=== PATIENT | female | born 1955 | race Caucasian/White ===

== ENCOUNTER 2024-02-17 12:42 | Outpatient (OUT) | payer MEDICARE, OTHER, SELFPAY ==
--- NOTE | 2024-02-17 12:52 | MM_ITS ---
Patient Name: YUKI VILLALOBOS MR#: [id number] : 1955 Exam Date: 02/17/2024 Ordering Doctor: DR EUNICE CRAIG . RADIOLOGY REPORT PROCEDURE: MM TOMOSYNTHESIS SCREENING BI COMPARISON: MG MAMM SCREEN 3D ARIADNE CAD, 02/14/2023. MG MAMM SCREEN 3D ARIADNE CAD, 02/05/2022. MG MAMM SCREEN 3D ARIADNE CAD, 02/02/2021. MG MAMM ARIADNE SCRN W CAD DIG, 06/03/2012. INDICATIONS: Screening Calculator Name NCI Breast Cancer Risk Assessment Tool 5 Year Breast Cancer Risk 1.40% Lifetime Breast Cancer Risk 4.90% Personal Breast Cancer No Personal Ovarian Cancer No Treatments None Family Cancers Son with testicular cancer at age 27. LOCATION: [facility] BREAST COMPOSITION: The breasts are almost entirely fatty. FINDINGS: DIAGNOSTIC CATEGORY 1--NEGATIVE. RIGHT BREAST: No significant suspicious finding. No significant change has occurred. LEFT BREAST: No significant suspicious finding. No significant change has occurred. RECOMMENDATIONS: ROUTINE MAMMOGRAM AND CLINICAL EVALUATION IN 12 MONTHS. PLEASE NOTE: A NORMAL MAMMOGRAM DOES NOT EXCLUDE THE POSSIBILITY OF BREAST CANCER. A CLINICALLY SUSPICIOUS PALPABLE LUMP SHOULD BE BIOPSIED. Dictated by: Geraldo Alvarenga M.D. on 02/18/2024 at 14:33 Approved by: Geraldo Alvarenga M.D. on 02/18/2024 at 14:35
== END 2024-02-17 12:43 | disposition home or self-care (01) ==
LOC: MAMMO 12:46
PROVIDERS: PCP Family Medicine; Visit Provider Family Medicine
DX: Z12.31 Encounter for screening mammogram for malignant neoplasm of breast (principal); Z80.43 Family history of malignant neoplasm of testis
CPT/HCPCS: 77063; 77067

== ENCOUNTER 2024-08-13 07:37 | Outpatient (OUT) | payer MEDICARE, OTHER, SELFPAY ==
--- OUTSIDE RECORDS SUMMARY | 2024-08-13 07:40 | XMS_ITS | CCD ---
Author Organization [facility] Care Team Providers Care Vp Lab Name Role Phone RAFA, DR DAWSON Attending Ned CRAIG, DR DAWSON Consulting Unavailable RAFA, DR DAWSON Primary Care Unavailable RAFA, DR DAWSON Admitting Unavailable ZIEBER, DR GERALDO Giraldo Consulting CHARISSA Brock Referring EUNICE Hoff Primary Care Unavailable CHARISSA BARONE Referring Unavailable EUNICE CRAIG Primary Care Unavailable Eunice Craig MD Primary Care Provider Eunice Craig MD Unavailable [phone] Eunice Craig MD Primary Care Provider Eunice Craig MD Unavailable [phone] CHARISSA BARONE Attending EUNICE Hoff Attending Unavailable EUNICE CRAIG Attending CHARISSA Brock Attending Unavailable CHARISSA BARONE Referring Unavailable CHARISSA BARONE Attending Unavailable EUNICE CRAIG Attending Unavailable CHARISSA BARONE Attending Unavailable EUNICE CRAIG Attending Unavailable LV LI Attending Unavailable EUNICE CRAIG Referring Unavailable CHARISSA BARONE Attending Unavailable CHARISSA BARONE Referring Unavailable CHARISSA BARONE Attending Unavailable Allergies Allergy Classification Reported Allergen(s) Allergy Type Date of Onset Reaction(s) Facility (1 source) Sulfamethoxazole / Trimethoprim Drug Allergy [facility] Repository (7 sources) Sulfamethoxazole / Trimethoprim; Translations: [SULFAMETHOXAZOLE-TR IMETHOPRIM] Drug Allergy 8 Rash [facility] Repository Medications Current Medications Medication Drug Class(es) Dates Sig (Normalized) Sig (Original) bisacodyl 5 mg delayed release oral tablet (2 sources) Stimulant Laxative Start: 07-27-2024 End: 07-27-2024 take 1 tablet by mouth once bisacodyl (Dulcolax) 5 MG EC tablet Indications: Encounter for screening for malignant neoplasm of colon Take 1 tablet (5 mg) by mouth 1 time for 1 dose Do not crush, chew, or split. Take as detailed on clinic hand out for colonoscopy prep 4 tablet 07/27/2024 07/27/2024 Active gabapentin 300 mg oral capsule (8 sources) Anti-epileptic Agent Start: 12-18-2023 End: 12-28-2024 take 1 capsule by mouth at bedtime gabapentin (Neurontin) 300 MG capsule Indications: Leg pain, bilateral Take 1 capsule (300 mg) by mouth at bedtime 90 capsule 1 07/01/2024 12/28/2024 Active polyethylene glycol 3350 76707 mg powder for oral solution (2 sources) Osmotic Laxative Start: 07-27-2024 End: 07-27-2024 take 17 g by mouth once polyethylene glycol, PEG, 3350 (Glycolax) 17 GM/SCOOP powder Indications: Colonoscopy Take 238 g by mouth 1 (one) time for 1 dose Take as detailed from clinic hand out for colonoscopy prep 238 g 07/27/2024 07/27/2024 Active ramipril 10 mg oral capsule (8 sources) Angiotensin Converting Enzyme Inhibitor Start: 01-07-2024 End: 12-28-2024 take 1 capsule by mouth once daily ramipril (Altace) 10 MG capsule Indications: Essential hypertension (CMS/HCC) Take 1 capsule (10 mg) by mouth Daily 90 capsule 1 07/01/2024 12/28/2024 Active semaglutide (Ozempic) 4 MG/3ML solution pen-injector (5 sources) inject 1 mg by subcutaneous injection every week semaglutide (Ozempic) 4 MG/3ML solution pen-injector Inject 1 mg under the skin 1 (one) time per week Active urea 400 mg/ml topical cream (6 sources) urea (Carmol) 40 % cream Apply topically 2 (two) times a day. Active valACYclovir 1000 mg oral tablet (6 sources) Herpesvirus Nucleoside Analog DNA Polymerase Inhibitor, Herpes Simplex Virus Nucleoside Analog DNA Polymerase Inhibitor, Herpes Zoster Virus Nucleoside Analog DNA Polymerase Inhibitor Start: 12-03-2023 valACYclovir (Valtrex) 1 g tablet Indications: Herpes simplex Take 2 tablets twice daily for 1 day at the onset of an outbreak as needed. 40 tablet 1 12/03/2023 Active Problems Active Problems Problem Classification Problem Date Documented Date Episodic/Chronic Anxiety disorders (6 sources) Mixed anxiety and depressive disorder; Translations: [Other specified anxiety disorders] Onset: 05-22-2023 05-22-2023 Chronic Asthma (6 sources) Uncomplicated mild persistent asthma; Translations: [Mild persistent asthma, uncomplicated] Onset: 05-22-2023 05-22-2023 Chronic Essential hypertension (8 sources) Essential hypertension; Translations: [Essential (primary) hypertension] Onset: 05-22-2023 05-22-2023 Chronic Malaise and fatigue (2 sources) Fatigue; Translations: [Chronic fatigue, unspecified] 07-01-2024 Chronic Mood disorders (6 sources) Mild depression; Translations: [Mild depressive disorder] Onset: 05-22-2023 05-22-2023 Chronic Nutritional deficiencies (6 sources) Vitamin D deficiency; Translations: [Vitamin D deficiency, unspecified] Onset: 05-22-2023 05-22-2023 Chronic Osteoarthritis (7 sources) Unilateral primary osteoarthritis, right knee; Translations: [Osteoarthritis of left hip joint] Onset: 05-22-2023 05-22-2023 Chronic Other acquired deformities (6 sources) Scoliosis deformity of spine; Translations: [Scoliosis, unspecified] Onset: 05-22-2023 05-22-2023 Chronic Other connective tissue disease (2 sources) Pain in bilateral legs; Translations: [Pain in right leg] 07-01-2024 Episodic Other nutritional; endocrine; and metabolic disorders (6 sources) Body mass index 30+ - obesity; Translations: [Body mass index (BMI) 39.0-39.9, adult] Onset: 05-22-2023 05-22-2023 Chronic Other nutritional; endocrine; and metabolic disorders (8 sources) Morbid obesity; Translations: [Morbid (severe) obesity due to excess calories] Onset: 05-22-2023 05-22-2023 Chronic Other screening for suspected conditions (not mental disorders or infectious disease) (6 sources) Encounter for screening mammogram for malignant neoplasm of breast; Translations: [Patient encounter status] Onset: 02-05-2022 Episodic Other upper respiratory disease (6 sources) Allergic rhinitis; Translations: [Allergic rhinitis, unspecified] Onset: 05-22-2023 05-22-2023 Chronic Residual codes; unclassified (1 source) Family history of malignant neoplasm of testis; Translations: [FAM HX MALIGNANT NEOPLASM TESTIS] Onset: 02-07-2022 Episodic Residual codes; unclassified (2 sources) FH: Thyroid disorder; Translations: [Family history of other endocrine, nutritional and metabolic diseases] 07-01-2024 Episodic Past or Other Problems Problem Classification Problem Date Documented Da te Episodic/Chronic Acquired foot deformities (6 sources) Talipes cavus; Translations: [Congenital pes cavus, unspecified foot] Onset: 05-22-2023 05-22-2023 Episodic Genitourinary symptoms and ill-defined conditions (8 sources) Microalbuminuria; Translations: [Proteinuria, unspecified] Onset: 05-22-2023 05-22-2023 Episodic Heart valve disorders (6 sources) Heart murmur; Translations: [Cardiac murmur, unspecified] Onset: 05-22-2023 05-22-2023 Episodic Other acquired deformities (6 sources) Acquired unequal leg length; Translations: [Unequal limb length (acquired), unspecified site] Onset: 05-22-2023 05-22-2023 Episodic Other aftercare (6 sources) Polypharmacy ; Translations: [Other nursing home (current) drug therapy] Onset: 05-22-2023 Resolved: 02-25-2024 02-25-2024 Episodic Other and unspecified benign neoplasm (6 sources) Tubular adenoma of colon; Translations: [Benign neoplasm of colon, unspecified] Onset: 08-12-2019 05-22-2023 Episodic Viral infection (6 sources) Herpes simplex; Translations: [Herpesviral infection, unspecified] Onset: 05-22-2023 05-22-2023 Episodic Results Test Name Value Interpretation Reference Range Facil ity MG MAMM SCREEN 3D ARIADNE CADon 02-05-2022 MG MAMM SCREEN 3D ARIADNE CAD Patient: MILLICENT MCCLENDON Exam Date: 02/05/2022 : 1955 Gender:F Ordering : DR EUNICE CRAIG . Admission #: [id number] Family : Order #: [id number] CLICK HERE TO VIEW EXAM RADIOLOGY REPORT PROCEDURE: MAMMOGRAM SCREENING 3D BILATERAL CAD COMPARISON: MG MAMM SCREEN 3D ARIADNE CAD, 02/02/2021. MG MAMM SCREEN ARIADNE W CAD, 02/02/2020. INDICATIONS: Screening mammography Calculator Name NCI Breast Cancer Risk Assessment Tool 5 Year Breast Cancer Risk 1.30% Lifetime Breast Cancer Risk 5.30% Personal Breast Cancer No Personal Ovarian Cancer No Treatments None Family Cancers Son with testicular cancer at age 27. LOCATION: [facility] BREAST COMPOSITION: Almost entirely fatty. FINDINGS: DIAGNOSTIC CATEGORY 1--NEGATIVE. RIGHT BREAST: No significant suspicious finding. No significant change has occurred. LEFT BREAST: No significant suspicious finding. No significant change has occurred. RECOMMENDATIONS: ROUTINE MAMMOGRAM AND CLINICAL EVALUATION IN 12 MONTHS. PLEASE NOTE: A NORMAL MAMMOGRAM DOES NOT EXCLUDE THE POSSIBILITY OF BREAST CANCER. A CLINICALLY SUSPICIOUS PALPABLE LUMP SHOULD BE BIOPSIED. Dictated by: Geraldo Alvarenga M.D. on 02/05/2022 at 13:36 Approved by: Geraldo Alvarenga M.D. on 02/05/2022 at 13:41 Normal [facility] XR Chest 2 Views*on 11-20-19 XR Chest 2 Views* CLINICAL HISTORY: Shortness of breath. Abnormal lung sounds. COMPARISON: None. TECHNIQUE: Chest radiographs, PA and lateral RESULT: No consolidation. No pleural effusion. No pneumothorax. Normal pulmonary vascular pattern. Normal cardiomediastinal silhouette.Mild tortuosity of the aorta. No acute osseous findings. S-shaped scoliosis. Surgical clips upper abdomen. IMPRESSION: No acute radiographic abnormality. Report reported and signed by Alpesh Ross on 11/20/2021 1310 Normal [facility] Nursery Nurse Vital Signs Date Time Vital Sign Value Performing Clinician Rufino morjeon 07-27-2024 09:58-0400 Body height 157.5 cm [facility] [employer] [employer] 07-27-2024 09:58-0400 Body mass index (BMI) [Ratio] 37.64 kg/m2 [employer] [employer] Phone: [employer] 07-27-2024 09:58-0400 Body weight 93.35 kg [facility] Phone: [facility] [employer] 07-27-2024 09:58-0400 Diastolic blood pressure 88 mm[Hg] [employer] [employer] Phone: [employer] 07-27-2024 09:58-0400 Systolic blood pressure 140 mm[Hg] Lv Li DO Work Phone: [facility] 07-01-2024 10:03-0400 Body height 157.5 cm Eunice Craig MD Work Phone: [facility] 07-01-2024 10:03-0400 Body mass index (BMI) [Ratio] 36.21 kg/m2 Eunice Craig MD Work Phone: [facility] 07-01-2024 10:03-0400 Body weight 89.81 kg Eunice Craig MD Work Phone: [facility] 07-01-2024 10:03-0400 Diastolic blood pressure 78 mm[Hg] Eunice Craig MD Work Phone: [facility] 07-01-2024 10:03-0400 Heart rate 91 /min Eunice Craig MD Work Phone: [facility] 07-01-2024 10:03-0400 SaO2% (BldA) [Mass fraction] 97 % Eunice Craig MD Work Phone: [facility] 07-01-2024 10:03-0400 Systolic blood pressure 130 mm[Hg] Eunice Craig MD Work Phone: [facility] Healthcare Encounters Encounter Date Encounter Type Care Provider Facility Start: 08-10-2024 End: 08-10-2024 ambulatory CHARISSA BARONE Not Available Start: 07-27-2024 End: 07-27-2024 ambulatory CHARISSA BARONE Not Available Start: 07-27-2024 End: 07-27-2024 Bamboo flowsheet Lv Li DO Work Phone: [facility] Start: 07-27-2024 End: 07-27-2024 Bamboo flowsheet Lv Li DO Work Phone: [facility] Start: 07-27-2024 End: 07-27-2024 Patient encounter procedure Lv Li DO Work Phone: [facility] Comment on above: Encounter for screen ing for malignant neoplasm of colon (Primary Dx) Start: 07-27-2024 End: 07-27-2024 ambulatory LV SHAHID Not Available Start: 07-01-2024 End: 07-01-2024 Loida Craig MD Work Phone: [facility] Start: 07-01-2024 End: 07-01-2024 Loida Craig MD Work Phone: [facility] Start: 07-01-2024 End: 07-01-2024 Office outpatient visit 25 minutes Eunice Craig MD Work Phone: [facility] Comment on above: Essential hypertensi on (CMS/HCC) (Primary Dx); Microalbuminuria; Morbid obesity due to excess calories (CMS/HCC); Chronic fatigue; Family history of thyroid disease; Leg pain, bilateral Start: 07-01-2024 End: 07-01-2024 ambulatory EUNICE CRAIG Not Available Start: 04-27-2024 End: 04-27-2024 ambulatory CHARISSA BARONE Not Available Start: 02-25-2024 End: 02-25-2024 ambulatory EUNICE CRAIG Not Available Start: 01-27-2024 End: 01-27-2024 ambulatory CHARISSA BARONE Not Available Start: 01-13-2024 End: 01-13-2024 ambulatory CHARISSA BARONE Not Available Start: 01-07-2024 End: 01-07-2024 ambulatory EUNICE CRAIG Not Available Start: 11-20-2023 End: 11-20-2023 ambulatory EUNICE CRAIG Not Available Start: 10-01-2023 End: 10-31-2023 ambulatory CHARISSA Moise BARONE [facility] Start: 08-27-2023 End: 09-30-2023 ambulatory CHARISSA BARONE [facility] Start: 08-19-2023 End: 08-19-2023 ambulatory CHARISSA BARONE Not Available Start: 02-05-2022 End: 02-06-[address] EUNICE CRAIG Facility:[facility]1 Procedures Date Procedure Procedure Detail Performing Clinician Start: 02-18-2024 Mammography Eunice barreto MD Work Phone: Start: 08-12-2019 Colonoscopy Eunice barreto MD Work Phone: Plan of Treatment Date Care Activity Detail Author Start: 08-12-2029 Screening for malign ant neoplasm of colon [facility] Start: 02-24-2025 Medicare Annual Well ness (AWV) Medicare Annual Wellness (AWV) [facility] Healthcare Start: 02-17-2025 Screening for malign ant neoplasm of breast Mammogram [facility] Start: 12-30-2024 End: 07-01-2025 T3, reverse T3, reverse Lab Routine Chronic fatigue Family history of thyroid disease Expected: 12/30/2024 (Approximate), Expires: 07/01/2025 [facility] Comment on above: Expected: 12/30/2024 (Approximate), Expires: 07/01/2025 Start: 12-30-2024 End: 07-01-2025 Thyrotropin [Units/volume] in Serum or Plasma TSH Lab Routine Chronic fatigue Family history of thyroid disease Expected: 12/30/2024 (Approximate), Expires: 07/01/2025 [facility] Comment on above: Expected: 12/30/2024 (Approximate), Expires: 07/01/2025 Start: 12-30-2024 End: 07-01-2025 Thyroxine (T4) free [Mass/volume] in Serum or Plasma T4, free Lab Routine Chronic fatigue Family history of thyroid disease Expected: 12/30/2024 (Approximate), Expires: 07/01/2025 [facility] Comment on above: Expected: 12/30/2024 (Approximate), Expires: 07/01/2025 Start: 12-30-2024 End: 07-01-2025 Triiodothyronine (T3) [Mass/volume] in Serum or Plasma T3 Lab Routine Chronic fatigue Family history of thyroid disease Expected: 12/30/2024 (Approximate), Expires: 07/01/2025 [facility] Work Phone: Comment on above: Expected: 12/30/2024 (Approximate), Expires: 07/01/2025 Start: 12-30-2024 End: 07-01-2025 Triiodothyronine (T3) Free [Mass/volume] in Serum or Plasma T3, free Lab Routine Chronic fatigue Family history of thyroid disease Expected: 12/30/2024 (Approximate), Expires: 07/01/2025 [facility] Comment on above: Expected: 12/30/2024 (Approximate), Expires: 07/01/2025 Start: 12-23-2024 End: 12-23-2024 Patient encounter procedure [facility] Start: 07-27-2024 End: 07-27-2024 Patient encounter procedure 07/27/2024 2:30 PM EDT Office Visit [facility] [address] [place] [phone] Charissa Barone, [employer]ATOR [address] [place] [place], [place] [id number] [facility] Start: 07-27-2024 End: 07-27-2024 Patient encounter procedure 07/27/2024 9:45 AM EDT Office Visit [facility] [address] [place] [address] Lv Li DO [address] [place] [address] Encounter for screening for malignant neoplasm of colon [facility] Comment on above: Encounter for screen ing for malignant neoplasm of colon Start: 07-01-2024 End: 07-01-2025 CBC W Auto Differential panel - Blood CBC and differential Lab Routine Chronic fatigue Expected: 07/01/2024 (Approximate), Expires: 07/01/2025 [facility] Comment on above: Expected: 07/01/2024 (Approximate), Expires: 07/01/2025 Start: 07-01-2024 End: 07-01-2025 Cortisol Cortisol Lab Routine Morbid obesity due to excess calories (CMS/HCC) Chronic fatigue Expected: 07/01/2024 (Approximate), Expires: 07/01/2025 [facility] Comment on above: Expected: 07/01/2024 (Approximate), Expires: 07/01/2025 Start: 07-01-2024 End: 07-01-2025 Iron and Iron binding capacity panel - Serum or Plasma Iron and TIBC Lab Routine Chronic fatigue Expected: 07/01/2024 (Approximate), Expires: 07/01/2025 [facility] Healthcare Comment on above: Expected: 07/01/2024 (Approximate), Expires: 07/01/2025 Start: 07-01-2024 End: 07-01-2025 Thyroglobulin Antibody Thyroglobulin Antibody Lab Routine Chronic fatigue Family history of thyroid disease Expected: 07/01/2024 (Approximate), Expires: 07/01/2025 [facility] Comment on above: Expected: 07/01/2024 (Approximate), Expires: 07/01/2025 Start: 07-01-2024 End: 07-01-2025 Thyroid peroxidase antibody Thyroid peroxidase antibody Lab Routine Chronic fatigue Family history of thyroid disease Expected: 07/01/2024 (Approximate), Expires: 07/01/2025 [facility] Comment on above: Expected: 07/01/2024 (Approximate), Expires: 07/01/2025 Start: 07-01-2024 End: 07-01-2024 Patient encounter procedure 07/01/2024 10:30 AM EDT Office Visit [facility] [address] [id number] Eunice Craig MD [address] [place] [address] (Fax) Essential hypertension (CMS/HCC); Microalbuminuria; Morbid obesity due to excess calories (CMS/HCC) [facility] Comment on above: Essential hypertensi on (CMS/HCC); Microalbuminuria; Morbid obesity due to excess calories (CMS/HCC) Start: 05-31-2024 Influenza vaccination Influenza Vacc ine (#1) [facility] Start: 06-08-2020 Pneumococcal Vaccine : 65+ Years (2 of 2 - PCV) Pneumococcal Vaccine: 65+ Years (2 of 2 - PCV) [facility] Start: 1955 Screening for malign ant neoplasm of colon [facility] Immunizations Immunization Date Immunization Notes Care Provider Fa cility 06-23-2024 Pneumococcal Conjuga te PCV 20 Eunice Craig MD Work Phone: [facility] 07-31-2023 SARS-COV-2 (COVID-19 ) vaccine, mRNA, spike protein, LNP, PF, 50 mcg/0.5 mL Eunice Craig MD Work Phone: [facility] 09-11-2022 Seasonal, quadrivale nt, recombinant, injectable influenza vaccine, preservative free Eunice Craig MD Work Phone: [facility] 09-11-2022 influenza virus vacc ine, unspecified formulation Eunice Craig MD Work Phone: [facility] 08-16-2022 SARS-CoV-2, Unspecified Cadence Craig MD Work Phone: [facility] 01-15-2021 zoster vaccine recombinant Eamon Craig MD Work Phone: [facility] 07-31-2020 influenza, injectabl e, quadrivalent, preservative free Eunice Craig MD Work Phone: [facility] 06-08-2019 pneumococcal polysaccharide vaccine, 23 valent Eunice Craig MD Work Phone: [facility] 06-08-2019 Seasonal, quadrivale nt, recombinant, injectable influenza vaccine, preservative free Eunice Craig MD Work Phone: [facility] 06-08-2019 zoster vaccine recombinant E jarek Craig MD Work Phone: [facility] 08-06-2015 influenza, injectabl e, quadrivalent, preservative free Eunice Craig MD Work Phone: [facility] Payers Date Payer Category Payer Medicare [id number] 2022 Private Health Insurance [id number] 2022 Medicare [id number] 2022 Private Health Insurance [id number] 1955 Unknown [id number] 2.16.84 [id number] 1955 Unknown [id number] 2.16.8 [id number] 1955 Unknown [id number] 2.16.84 [id number] 1955 Unknown [id number] 2.16.84 0.1.172920.3.579.2.1259 1955 Unknown [id number] 2.16.84 [id number] 1955 Unknown [id number] 2.16.84 0.1.487490.3.579.2.1259 1955 Unknown [id number] 2.16.84 0.1.852352.3.579.2.1259 1955 Unknown [id number] 2.16.84 0.1.993360.3.579.2.1259 1955 Unknown [id number] 2.16.84 0.1.978581.3.579.2.1259 1955 Unknown [id number] 2.16.84 0.1.107565.3.579.2.1259 1955 Unknown [id number] 2.16.84 0.1.237432.3.579.2.1259 1955 Unknown [id number] 2.16.84 [id number] 1955 Unknown [id number] 2.16.84 0.1.390184.3.579.2.125 1955 Unknown [id number] 2.16.84 0.1.078487.3.579.2.1259 1955 Unknown [id number] 2.16.84 0.1.043393.3.579.2.1259 1955 Unknown [id number] 2.16.840 .[id number] Private Health Insurance [id number] Unknown [id number] Social History Date Type Detail Facility Start: 05-22-2023 Tobacco smoking stat [facility] Never smoked tobacco [facility] Start: 05-22-2023 Tobacco use and exposure Smoke less tobacco non-user [facility] Start: 04-27-2024 End: 07-27-2024 Alcoholic beverage intake Current drinker of alcohol (finding) [facility] Start: 07-10-2023 End: 02-24-2024 History of Social function [facility] Start: 07-10-2023 End: 02-24-2024 Humiliation, Afraid, Rape, and Kick questionnaire [HARK] [facility] Within the last year , have you been afraid of your partner or ex-partner? No [facility] Do you belong to any clubs or organizations such as orthodox groups, unions, fraternal or athletic groups, or school groups? Yes [facility] Are you now , , , , never or living with a partner? [facility] How often to you hav e a drink containing alcohol? 4 or more times a week [facility] How many standard dr inks containing alcohol do you have on a typical day? 1 or 2 [facility] How often do you hav e 6 or more drinks on 1 occasion? Never [facility] How hard is it for y ou to pay for the very basics like food, housing, medical care, and heating Not very hard [facility] Do you feel stress - tense, restless, nervous, or anxious, or unable to sleep at night because your mind is troubled all the time - these days [OSQ] Not at all [facility] (I/We) worried wheth er (my/our) food would run out before (I/we) got money to buy more. Never true [facility] In the past 12 month s, has lack of transportation kept you from medical appointments or from getting medications? No [facility] Start: 05-27-2023 Education 21 [facility] Start: 05-27-2023 Alcohol Comment Caffeine intak e : 3 cups per day of coffee [facility] Start: 04-03-1956 Sex assigned at Female [facility] Start: 04-16-2023 Gender identity Identifies as female gender (finding) [facility] Start: 04-16-2023 Sexual orientation Heterosexual (rony cuellar) [facility] NEGATED: Highlighted rowStart: NINF History of tobacco use Passive smoker [facility] History of Present illness Narrative 07-27-2024 Lv Li DO - 07/27/2024 9:45 AM EDT Note Date & Type Note Facility 07-27-2024 History of Presen t illness Narrative General Surgery H&P Millicent Mcclendon 1955 Millicent Mcclendon is a 68 y.o. female presents for Colonoscopy (Pt presents today for a colonoscopy consult. admits to having a colonoscopy before. Last colonoscopy removed 1 polyp and it was five years ago. Pt denies abdominal pain. Pt denies rectal bleeding. Pt denies changes in bowel movements. Pt denies a family history of colon cancer that they know of. Pt denies any concern today. ) Denies changes in caliber of stools. Denies hx of unplanned weight loss. Denies fevers, chills, or sweats. Denies nausea or vomiting. Last colonoscopy was 2018 SUBJECTIVE: MEDICATIONS: ALLERGIES Current Outpatient Medications Medication Instructions bisacodyl (DULCOLAX) 5 mg, Oral, Once, Do not crush, chew, or split. Take as detailed on clinic hand out for colonoscopy prep gabapentin (NEURONTIN) 300 mg, Oral, Nightly polyethylene glycol (PEG) 3350 (GLYCOLAX) 238 g, Oral, Once, Take as detailed from clinic hand out for colonoscopy prep ramipril (ALTACE) 10 mg, Oral, Daily semaglutide (OZEMPIC) 1 mg, Weekly urea (Carmol) 40 % cream 2 times daily valACYclovir (Valtrex) 1 g tablet Take 2 tablets twice daily for 1 day at the onset of an outbreak as needed. Allergies Allergen Reactions Sulfamethoxazole-Trimethoprim Rash PAST MEDICAL HISTORY: SOCIAL HISTORY SURGICAL HISTORY: Past Medical History: Diagnosis Date Acute left-sided low back pain with left-sided sciatica Allergic Arthritis May 2023 Asthma (CMS/HCC) Delayed emergence from general anesthesia H/O cold sores Hypertension (CMS/HCC) Left lumbar pain Microalbuminuria Social History Tobacco Use Smoking status: Never Passive exposure: Never Smokeless tobacco: Never Vaping Use Vaping status: Never Used Substance Use Topics Alcohol use: Yes Alcohol/week: 3.0 - 4.0 standard drinks of alcohol Types: 3 - 4 Standard drinks or equivalent per week Comment: Caffeine intake : 3 cups per day of coffee Drug use: Never Past Surgical History: Procedure Laterality Date CATARACT EXTRACTION Right 08/05/2018 CATARACT EXTRACTION Left 07/2018 SECTION, LOW TRANSVERSE 1981 CHOLECYSTECTOMY 1997 COLONOSCOPY 2007 OTHER SURGICAL HISTORY 2016 Toe nails removed by Dr Kelley STOMACH SURGERY 2009 stomach stappled Family History Problem Relation Name Age of Onset Alzheimer's disease Mother Cancer Father Juvencio Velasquez No Known Problems Brother Down syndrome Son Allergies Allergen Reactions Sulfamethoxazole-Trimethoprim Rash Past Surgical History: Procedure Laterality Date CATARACT EXTRACTION Right 08/05/2018 CATARACT EXTRACTION Left 07/2018 SECTION, LOW TRANSVERSE 1981 CHOLECYSTECTOMY 1997 COLONOSCOPY 2007 OTHER SURGICAL HISTORY 2017 Toe nails removed by Dr Kelley STOMACH SURGERY 2009 stomach stappled Tobacco Use: Low Risk (07/27/2024) Patient History Smoking Tobacco Use: Never Smokeless Tobacco Use: Never Passive Exposure: Never Alcohol Use: Not At Risk (07/10/2023) AUDIT-C Frequency of Alcohol Consumption: 4 or more times a week Average Number of Drinks: 1 or 2 Frequency of Binge Drinking: Never Depression: Not at risk (02/24/2024) PHQ-2 PHQ-2 Score: 0 Physical Activity: Insufficiently Active (07/10/2023) Exercise Vital Sign Days of Exercise per Week: 3 days Minutes of Exercise per Session: 20 min REVIEW OF SYMPTOMS: Review of Systems All other systems reviewed and are negative. 10 systems were reviewed. Positives noted above. Remainder are negative per CMS guidelines. OBJECTIVE: Visit Vitals BP 140/88 Ht 5' 2 Wt 205 lb 12.8 oz BMI 37.64 kg/m OB Status Postmenopausal Smoking Status Never BSA 2.02 m Physical Exam Vitals reviewed. General: AAOx3, NAD Head: atraumatic normocephalic Neck: trachea midline. No masses or lymphadenopathy Heart: Regular rate and rhythm Lungs: equal chest rise and fall, non labored breathing Abdomen: soft, nontender, and non distended Ext: motor 5/5 all extremities with no gross deformities Psych: alert and oriented, behavior appropriate ASSESSMENT AND PLAN: Assessment/Plan Diagnoses and all orders for this visit: Encounter for screening for malignant neoplasm of colon - Ambulatory referral to General Surgery - bisacodyl (Dulcolax) 5 MG EC tablet; Take 1 tablet (5 mg) by mouth 1 time for 1 dose Do not crush, chew, or split. Take as detailed on clinic hand out for colonoscopy prep - polyethylene glycol, PEG, 3350 (Glycolax) 17 GM/SCOOP powder; Take 238 g by mouth 1 (one) time for 1 dose Take as detailed from clinic hand out for colonoscopy prep Plan: Patient is average risk for colon cancer. Colonoscopy can be scheduled electively. Patient informed of the risks of procedure which include but not limited to bleeding, perforation, and risks of anesthesia. Patient understood risks and signed informed consent for the procedure under monitored anesthesia care. Handout for bowel prep provided in clinic. Patient was informed of the need for a ride home from the hospital and the need for someone to be with them for the following 24 hrs post procedure. Thank you, Alexandro Li DO documented in this encounter [facility] History of Present illness Narrative 07-01-2024 Eunice Craig MD - 07/01/2024 10:30 AM EDT Note Date & Type Note Facility 07-01-2024 History of Presen t illness Narrative Images from the original note were not included. Patient ID: Millicent Mcclendon is a 68 y.o. female who presents for: Hypertension Patient is here for follow-up of elevated blood pressure. She is not exercising and is adherent to a low-salt diet. Blood pressure is well controlled at home. Cardiac symptoms: intermittent headaches . Patient denies chest pain, dyspnea, irregular heart beat, lower extremity edema, and palpitations. Cardiovascular risk factors: advanced age (older than 55 for men, 65 for women), hypertension, microalbuminuria, obesity (BMI >= 30 kg/m2), and sedentary lifestyle. Use of agents associated with hypertension: none. History of target organ damage: none. Review of Systems Constitutional: Negative for activity change and fatigue. Respiratory: Negative for cough, shortness of breath and wheezing. Cardiovascular: Negative for chest pain, palpitations and leg swelling. Neurological: Positive for headaches. Negative for light-headedness. Objective The patient is pleasant and in no acute distress. The neck is supple and trachea is midline. No masses are appreciated. The heart is regular rate and rhythm without S3, S4. No murmur. The patient has normal respiratory pattern. The breath sounds are symmetrical without evidence of rhonchi or rales. No wheezing. The skin is warm and dry. The lower extremities have trace edema. The patient has good eye contact and speech is clear. Appropriate affect. Visit Vitals BP 130/78 Pulse 91 Ht 5' 2 Wt 198 lb SpO2 97% BMI 36.21 kg/m OB Status Postmenopausal Smoking Status Never BSA 1.98 m Allergies Allergen Reactions Sulfamethoxazole-Trimethoprim Rash Current Outpatient Medications on File Prior to Visit Medication Sig Dispense Refill gabapentin (Neurontin) 300 MG capsule Take 1 capsule (300 mg) by mouth in the morning. Take before meals. (Patient taking differently: Take 300 mg by mouth at bedtime) 90 capsule 1 ramipril (Altace) 10 MG capsule Take 1 capsule (10 mg) by mouth Daily 90 capsule 1 semaglutide (Ozempic) 4 MG/3ML solution pen-injector Inject 1 mg under the skin 1 (one) time per week urea (Carmol) 40 % cream Apply topically 2 (two) times a day. valACYclovir (Valtrex) 1 g tablet Take 2 tablets twice daily for 1 day at the onset of an outbreak as needed. 40 tablet 1 No current facility-administered medications on file prior to visit. 1. Essential hypertension (CMS/[facility]) Chronic problem, stable, to goal. In prescribing a renewal to their current medication, consideration of the following encompasses moderate decision making; the current prescriptions and supplements, the current allergies and medication intolerances, current medical conditions, and potential drug interactions. Any changes to risks, benefits, and reason for renewing their current medication due to the above were discussed. The patient was given a chance to ask questions today and all questions were answered. The patient is to contact us if any other questions arise or if any problems occur. (Utilizing the original guidelines or the 2020 office/outpatient code guidelines for selecting the level of E/M service, In both sets of guidelines, prescription drug management appears in the moderate medical decision making (MDM) row. Neither the original guidelines nor the new guidelines state that a new prescription or change is needed in order to credit prescription drug management) - ramipril (Altace) 10 MG capsule; Take 1 capsule (10 mg) by mouth Daily Dispense: 90 capsule; Refill: 1 2. Microalbuminuria Chronic problem, defining an aspect the nephropathy, with significant risk, uncertain progression requiring longitudinal monitoring, and moderate decision making. Microalbuminuria describes a moderate increase in the level of urine albumin. Normally, the kidneys filter albumin, so if the kidney leaks small amounts of albumin into the urine then it is a indicator of chronic kidney disease. Microalbuminuria is an independent indicator of increased cardiovascular risk among individuals and therefore can be used for risk stratification for cardiovascular disease. 3. Morbid obesity due to excess calories ([facility]) 11/20/2023 01/07/2024 02/25/2024 07/01/2024 Vitals Height (in) 5' 2 5' 2 5' 2 5' 2 Weight (lb) 206 201.5 203.5 198 - Cortisol; Future - Cortisol 4. Chronic fatigue Chronic problem, unstable, complex in nature with moderate decision making. I discussed with the patient or their student services representative, their fatigue issues. We discussed how this is almost always chronic and by definition must have been in place for 6 weeks in order to be considered chronic fatigue. We discussed how this is almost always a multifactorial problem. We discussed that the patient will almost certainly need to make lifestyle changes including diet, sleep, exercise, and stress management. We further discussed how we will search for underlying disease processes and then support or treat them as appropriate. We discussed how we can frequently improve the symptoms, but may not be able to completely cure or resolve the issue. The patient was given a chance to ask questions and all questions were answered. - T3; Future - T3, reverse; Future - T3, free; Future - T4, free; Future - TSH; Future - Thyroglobulin Antibody; Future - Thyroid peroxidase antibody; Future - CBC and differential; Future - Iron and TIBC; Future - Cortisol; Future - T3 - T3, reverse - T3, free - T4, free - TSH - Thyroglobulin Antibody - Thyroid peroxidase antibody - CBC and differential - Iron and TIBC - Cortisol 5. Family history of thyroid disease - T3; Future - T3, reverse; Future - T3, free; Future - T4, free; Future - TSH; Future - Thyroglobulin Antibody; Future - Thyroid peroxidase antibody; Future - T3 - T3, reverse - T3, free - T4, free - TSH - Thyroglobulin Antibody - Thyroid peroxidase antibody 6. Leg pain, bilateral Chronic problem, stable, gets relief from the gabapentin. Denies significant side effects. - gabapentin (Neurontin) 300 MG capsule; Take 1 capsule (300 mg) by mouth at bedtime Dispense: 90 capsule; Refill: 1 documented in this encounter [facility] Evaluation note Note Date & Type Note Facility Evaluation note Diagnosis Essential hypertension (CMS/HCC)- Primary Unspecified essential hypertension Microalbuminuria Proteinuria Morbid obesity due to excess calories (CMS/HCC) Chronic fatigue Other malaise and fatigue Family history of thyroid disease Family history of other endocrine and metabolic diseases Leg pain, bilateral Pain in soft tissues of limb documented in this encounter [facility] Evaluation note Note Date & Type Note Facility Evaluation note Diagnosis Encounter for screening for malignant neoplasm of colon- Primary Right knee pain, unspecified chronicity documented in this encounter [facility] Summary Purpose Family History No Family History Records FoundNo Family History Records FoundNo Family History Records FoundNo Family History Records Found Advance Directives No Advanced Directives Records FoundNo Advanced Directives Records FoundNo Advanced Directives Records FoundNo Advanced Directives Records Found Additional Source Comments INFORMATION SOURCE (unrecogn ized section and content) DATE CREATED AUTHOR 11/21/2021 [facility] DATE CREATED AUTHOR AUTHOR'S ORGANIZ ATION 02/09/2022 [facility] DATE CREATED AUTHOR AUTHOR'S ORGANIZ ATION 11/03/2023 [facility] DATE CREATED AUTHOR AUTHOR'S ORGANIZ ATION 08/11/2024 [facility] EPIC Care Teams (unrecognized sec tion and content) Vp Lab Relationship Specialty Start Date End Date Eunice Craig MD [address] [place] [address] PCP - General Family Medicine 02/05/23 Eunice Craig MD [address] [place] [address] PCP - ACO Reach 06/29/23 Vp Lab Relationship Specialty Start Date End Date Eunice Craig MD [address] [facility] [place] [address] PCP - General Family Medicine 02/05/23 Eunice Craig MD [address] [facility] [place] [address] PCP - ACO Reach 06/29/23 Vp Lab Relationship Specialty Start Date End Date Eunice Craig MD [address] [place] [address] PCP - General Family Medicine 02/05/23 Eunice Craig MD [address] [place] [address] PCP - ACO Reach 06/29/23 Vp Lab Relationship Specialty Start Date End Date Eunice Craig MD [address] [place] [address] PCP - General Family Medicine 02/05/23 Eunice Craig MD [address] [place] [address] PCP - ACO Reach 06/29/23 Reason for Visit (unrecogniz ed section and content) Reason Comments Colonoscopy Pt presents today fo r a colonoscopy consult. Pt denies/admits to: admits to having a colonoscopy before. Last colonoscopy removed 1 polyp and it was five years ago. Pt denies abdominal pain. Pt denies rectal bleeding. Pt denies changes in bowel movements. Pt denies a family history of colon cancer that they know of. Pt denies any concern today. Specialty Diagnoses / Procedures Referred By Contac t Referred To Contact General Surgery Diagnoses Encounter for screening for malignant neoplasm of colon Procedures [place] OFFICE/OUTPATIENT NEW HIGH MDM 60 MINUTES Eunice Craig MD [address] [place] [id number] Phone: tel: fax: Lv Li DO [address] [place] [address] Phone: tel: fax: Referral ID Status Reason Start Date Expiration Date V isits Requested Visits Authorized [id number] Closed Specialty Services Required 07/20/2024 01/16/2025 1 1 FOR RECORDS PERTAINING TO PATIENTS WHO ARE OR HAVE BEEN ENROLLED IN A CHEMICAL DEPENDENCY/SUBSTANCEABUSE PROGRAM, SOME INFORMATION MAY BE OMITTED. This clinical summary was aggregated from multiple sources. Caution should be exercised in using it in the provision of clinical care. This summary normalizes information from multiple sources, and as a consequence, information in this document may materially change the coding, format and clinical context of patient data. In addition, data may be omitted in some cases. CLINICAL DECISIONS SHOULD BE BASED ON THE PRIMARY CLINICAL RECORDS. [employer] provides no warranty or guarantee of the accuracy or completeness of information in this document.
== END 2024-08-13 07:38 | disposition home or self-care (01) ==
LOC: PST 07:38
PROVIDERS: PCP Family Medicine; Visit Provider Surgery
DX: Z01.818 Encounter for other preprocedural examination (principal); Z12.11 Encounter for screening for malignant neoplasm of colon; Z86.0100 Personal history of colon polyps, unspecified

== ENCOUNTER 2024-08-18 06:24 | Day surgery (SDC) | payer MEDICARE, OTHER, SELFPAY ==
--- OUTSIDE RECORDS SUMMARY | 2024-08-18 06:27 | XMS_ITS | CCD ---
Author Organization [facility] Care Team Providers Care Band Booker Name Role Phone RAFA, DR DAWSON Attending Unavailable RAFA, DR DAWSON Consulting Unavailable RAFA, DR DAWSON Primary Care Unavailable RAFA, DR DAWSON Admitting Unavailable ZIEBER, DR GERALDO Giraldo Consulting CHARISSA Brock Referring EUNICE Hoff Primary Care Unavailable CHARISSA BARONE Referring Unavailable EUNICE CRAIG Primary Care Unavailable Eunice Craig MD Primary Care Provider Eunice Craig MD Unavailable Eunice Craig MD Primary Care Provider [phone] Eunice Craig MD Unavailable CHARISSA BARONE Attending Unavailable EUNICE CRAIG Attending Unavailable EUNICE CRAIG Attending Unavailable CHARISSA BARONE Attending Unavailable CHARISSA BARONE [...] source) Sulfamethoxazole / Trimethoprim Drug Allergy [facility] Repository (8 sources) Sulfamethoxazole / Trimethoprim; Translations: [SULFAMETHOXAZOLE-TR IMETHOPRIM] [...] 07/27/2024 Active gabapentin 300 mg oral capsule (9 sources) Anti-epileptic Agent Start: 12-18-2023 End: 12-28-2024 take 1 capsule by mouth at bedtime gabapentin (Neurontin) 300 MG capsule Indications: Leg pain, bilateral Take 1 capsule (300 mg) by mouth at bedtime 90 capsule 1 07/01/2024 12/28/2024 Active polyethylene glycol 3350 90380 mg powder for oral solution (2 sources) Osmotic Laxative Start: 07-27-2024 End: 07-27-2024 take 17 g by mouth once polyethylene glycol, PEG, 3350 (Glycolax) 17 GM/SCOOP powder Indications: Colonoscopy Take 238 g by mouth 1 (one) time for 1 dose Take as detailed from clinic hand out for colonoscopy prep 238 g 07/27/2024 07/27/2024 Active ramipril 10 mg oral capsule (9 sources) Angiotensin Converting Enzyme Inhibitor Start: 01-07-2024 End: 12-28-2024 take 1 capsule by mouth once daily ramipril (Altace) 10 MG capsule Indications: Essential hypertension (CMS/HCC) Take 1 capsule (10 mg) by mouth Daily 90 capsule 1 07/01/2024 12/28/2024 Active semaglutide (Ozempic) 4 MG/3ML solution pen-injector (6 sources) inject 1 mg by subcutaneous injection every week semaglutide (Ozempic) 4 MG/3ML solution pen-injector Inject 1 mg under the skin 1 (one) time per week Active urea 400 mg/ml topical cream (7 sources) urea (Carmol) 40 % cream Apply topically 2 (two) times a day. Active valACYclovir 1000 mg oral tablet (7 sources) Herpesvirus Nucleoside Analog DNA Polymerase Inhibitor, Herpes Simplex Virus Nucleoside Analog DNA Polymerase Inhibitor, Herpes Zoster Virus Nucleoside Analog DNA Polymerase Inhibitor Start: 12-03-2023 valACYclovir (Valtrex) 1 g tablet Indications: Herpes simplex Take 2 tablets twice daily for 1 day at the onset of an outbreak as needed. 40 tablet 1 12/03/2023 Active vitamin B12 (1 source) Vitamin B12 Cyanocobalamin (VITAMIN B 12 PO) Take by mouth Active Problems Active Problems Problem Classification Problem Date Documented Date Episodic/Chronic Anxiety disorders (7 sources) Mixed anxiety and depressive disorder; Translations: [Other specified anxiety disorders] Onset: 05-22-2023 05-22-2023 Chronic Asthma (7 sources) Uncomplicated mild persistent asthma; Translations: [Mild persistent asthma, uncomplicated] Onset: 05-22-2023 05-22-2023 Chronic Essential hypertension (9 sources) Essential hypertension; Translations: [Essential (primary) hypertension] Onset: 05-22-2023 05-22-2023 Chronic Malaise and fatigue (2 sources) Fatigue; Translations: [Chronic fatigue, unspecified] 07-01-2024 Chronic Mood disorders (7 sources) Mild depression; Translations: [Mild depressive disorder] Onset: 05-22-2023 05-22-2023 Chronic Nutritional deficiencies (7 sources) Vitamin D deficiency; Translations: [Vitamin D deficiency, unspecified] Onset: 05-22-2023 05-22-2023 Chronic Osteoarthritis (8 sources) Unilateral primary osteoarthritis, right knee; Translations: [Osteoarthritis of left hip joint] Onset: 05-22-2023 05-22-2023 Chronic Other acquired deformities (7 sources) Scoliosis deformity of spine; Translations: [Scoliosis, unspecified] Onset: 05-22-2023 05-22-2023 Chronic Other connective tissue disease (2 sources) Pain in bilateral legs; Translations: [Pain in right leg] 07-01-2024 Episodic Other nutritional; endocrine; and metabolic disorders (7 sources) Body mass index 30+ - obesity; Translations: [Body mass index (BMI) 39.0-39.9, adult] Onset: 05-22-2023 05-22-2023 Chronic Other nutritional; endocrine; and metabolic disorders (9 sources) Morbid obesity; Translations: [Morbid (severe) obesity due to excess calories] Onset: 05-22-2023 05-22-2023 Chronic Other screening for suspected conditions (not mental disorders or infectious disease) (6 sources) Encounter for screening mammogram for malignant neoplasm of breast; Translations: [Patient encounter status] Onset: 02-05-2022 Episodic Other upper respiratory disease (7 sources) Allergic rhinitis; Translations: [Allergic rhinitis, unspecified] [...] Documented Da te Episodic/Chronic Acquired foot deformities (7 sources) Talipes cavus; Translations: [Congenital pes cavus, unspecified foot] Onset: 05-22-2023 05-22-2023 Episodic Genitourinary symptoms and ill-defined conditions (9 sources) Microalbuminuria; Translations: [Proteinuria, unspecified] Onset: 05-22-2023 05-22-2023 Episodic Heart valve disorders (7 sources) Heart murmur; Translations: [Cardiac murmur, unspecified] Onset: 05-22-2023 05-22-2023 Episodic Other acquired deformities (7 sources) Acquired unequal leg length; Translations: [Unequal limb length (acquired), unspecified site] Onset: 05-22-2023 05-22-2023 Episodic Other aftercare (7 sources) Polypharmacy ; Translations: [Other moth exterminator (current) drug therapy] Onset: 05-22-2023 Resolved: 02-25-2024 02-25-2024 Episodic Other and unspecified benign neoplasm (7 sources) Tubular adenoma of colon; Translations: [Benign neoplasm of colon, unspecified] Onset: 08-12-2019 05-22-2023 Episodic Viral infection (7 sources) Herpes simplex; Translations: [Herpesviral infection, unspecified] Onset: 05-22-2023 05-22-2023 Episodic Results Test Name Value Interpretation Reference Range Facil ity MG MAMM SCREEN 3D ARIADNE CADon 02-05-2022 MG MAMM SCREEN 3D ARIADNE CAD Patient: MILLICENT MCCLENDON Exam Date: 02/05/2022 : 1955 Gender:F Ordering : DR EUNICE CRAIG . Admission #: [id number] Family : Order #: [id number] CLICK HERE TO VIEW EXAM RADIOLOGY REPORT [...] testicular cancer at age 29. LOCATION: [facility] BREAST COMPOSITION: Almost entirely fatty. FINDINGS: DIAGNOSTIC [...] M.D. on 02/05/2022 at 13:41 Normal [facility] XR Chest 2 Views*on 11-20-19 22 XR Chest 2 Views* CLINICAL HISTORY: Shortness [...] by Alpesh Ross on 11/20/2021 1310 Normal [facility] Specialist Vital Signs Date Time Vital Sign Value Performing Clinician Rufino morejon 07-27-2024 09:58-0400 Body height 157.5 cm [employer] Phone: [facility] 07-27-2024 09:58-0400 Body mass index (BMI) [Ratio] 37.64 kg/m2 [employer] Phone: [employer] 07-27-2024 09:58-0400 Body weight 93.35 kg [employer] Phone: [facility] [employer] 07-27-2024 09:58-0400 Diastolic blood pressure 88 mm[Hg] Lv Li DO Work Phone: [facility] 07-27-2024 09:58-0400 Systolic blood pressure 140 mm[Hg] Lv Li DO Work Phone: [facility] 07-01-2024 10:03-0400 Body height 157.5 cm Eunice Craig MD Work Phone: [facility] 07-01-2024 10:03-0400 Body mass index (BMI) [Ratio] 36.21 kg/m2 Eunice Craig MD Work Phone: [facility] 07-01-2024 10:03-0400 Body weight 89.81 kg Eunice Craig MD Work Phone: [facility] 07-01-2024 10:03-0400 Diastolic blood pressure 78 mm[Hg] Eunice Craig MD Work Phone: [facility] 07-01-2024 10:03-0400 Heart rate 91 /min Eunice Craig MD Work Phone: [facility] 07-01-2024 10:03-0400 SaO2% (BldA) [Mass fraction] 97 % Eunice Craig MD Work Phone: [facility] 07-01-2024 10:03-0400 Systolic blood pressure 130 mm[Hg] Eunice Craig MD Work Phone: [facility] Healthcare Encounters Encounter Date Encounter Type Care Provider Facility Start: 08-10-2024 End: 08-10-2024 Bamboo flowsnallely Barone CASKET INSPECTOR Work Phone: [facility] Start: 08-10-2024 End: 08-10-2024 Bamboo flowsnallely Barone CASKET INSPECTOR Work Phone: [facility] Start: 08-10-2024 End: 08-10-2024 ambulatory CHARISSA BARONE [...] Dx) Start: 07-27-2024 End: 07-27-2024 ambulatory LV LI Not Available Start: 07-01-2024 End: 07-01-2024 Bamboo flowsheet Eunice Craig MD Work Phone: [facility] Start: 07-01-2024 End: 07-01-2024 Bamboo flowsheet Eunice Craig MD Work Phone: [facility] [...] Not Available Start: 10-01-2023 End: 10-31-2023 ambulatory [facility] Start: 08-27-2023 End: 09-30-[address] [facility] Start: 08-19-2023 End: 08-19-2023 ambulatory CHARISSA BARONE Not Available Start: 02-05-2022 End: 02-06-[address] EUNICE CRAIG Facility:[facility] Procedures Date Procedure Procedure Detail Performing Clinician Start: 02-18-2024 Mammography Eunice barreto MD Work Phone: Start: 08-12-2019 Colonoscopy Eunice barreto MD Work Phone: Plan of Treatment Date Care Activity Detail Author Start: 08-12-2029 Screening for malign ant neoplasm of colon [facility] Healthcare Start: 02-24-2025 Medicare Annual Well ness (AWV) Medicare Annual Wellness (AWV) [facility] Start: 02-17-2025 Screening for malign ant neoplasm of breast Mammogram [facility] Start: 12-30-2024 End: 07-01-2025 T3, reverse T3, reverse Lab Routine Chronic fatigue Family history of thyroid disease Expected: 12/30/2024 (Approximate), Expires: 07/01/2025 [facility] Comment on above: Expected: 12/30/2024 (Approximate), Expires: 07/01/2025 Start: 12-30-2024 End: 07-01-2025 Thyrotropin [Units/volume] in Serum or Plasma TSH Lab Routine Chronic fatigue Family history of thyroid disease Expected: 12/30/2024 (Approximate), Expires: 07/01/2025 [facility] Comment on above: Expected: 12/30/2024 (Approximate), Expires: 07/01/2025 Start: 12-30-2024 End: 07-01-2025 Thyroxine (T4) free [Mass/volume] in Serum or Plasma T4, free Lab Routine Chronic fatigue Family history of thyroid disease Expected: 12/30/2024 (Approximate), Expires: 07/01/2025 [facility] Healthcare Comment on above: Expected: 12/30/2024 (Approximate), Expires: 07/01/2025 Start: 12-30-2024 End: 07-01-2025 Triiodothyronine (T3) [Mass/volume] in Serum or Plasma T3 Lab Routine Chronic fatigue Family history of thyroid disease Expected: 12/30/2024 (Approximate), Expires: 07/01/2025 [facility] Work Phone: Comment on above: Expected: 12/30/2024 (Approximate), Expires: 07/01/2025 Start: 12-30-2024 End: 07-01-2025 Triiodothyronine (T3) Free [Mass/volume] in Serum or Plasma T3, free Lab Routine Chronic fatigue Family history of thyroid disease Expected: 12/30/2024 (Approximate), Expires: 07/01/2025 [facility] Healthcare Comment on above: Expected: 12/30/2024 (Approximate), Expires: 07/01/2025 Start: 12-23-2024 End: 12-23-2024 Patient encounter procedure [facility] Start: 07-27-2024 End: 07-27-2024 Patient encounter procedure 07/27/2024 2:30 PM EDT Office Visit [facility] [address] [place] [address] Charissa Barone, CASKET INSPECTOR [address] [place], [place] [id number] [facility] Start: 07-27-2024 End: 07-27-2024 Patient encounter procedure 07/27/2024 9:45 AM EDT Office Visit [facility] [address] [place] [address] Lv Li DO [address] [place] [address] Encounter for screening for malignant neoplasm of colon [facility] Comment on above: Encounter for screen ing for malignant neoplasm of colon Start: 07-01-2024 End: 07-01-2025 CBC W Auto Differential panel - Blood CBC and differential Lab Routine Chronic fatigue Expected: 07/01/2024 (Approximate), Expires: 07/01/2025 [facility] Healthcare Comment on above: Expected: 07/01/2024 (Approximate), Expires: 07/01/2025 Start: 07-01-2024 End: 07-01-2025 Cortisol Cortisol Lab Routine Morbid obesity due to excess calories (CMS/HCC) Chronic fatigue Expected: 07/01/2024 (Approximate), Expires: 07/01/2025 [facility] Healthcare Comment on above: Expected: 07/01/2024 (Approximate), Expires: 07/01/2025 Start: 07-01-2024 End: 07-01-2025 Iron and Iron binding capacity panel - Serum or Plasma Iron and TIBC Lab Routine Chronic fatigue Expected: 07/01/2024 (Approximate), Expires: 07/01/2025 [facility] Healthcare Comment on above: Expected: 07/01/2024 (Approximate), Expires: 07/01/2025 Start: 07-01-2024 End: 07-01-2025 Thyroglobulin Antibody Thyroglobulin Antibody Lab Routine Chronic fatigue Family history of thyroid disease Expected: 07/01/2024 (Approximate), Expires: 07/01/2025 [facility] Healthcare Comment on above: Expected: 07/01/2024 (Approximate), Expires: 07/01/2025 Start: 07-01-2024 End: 07-01-2025 Thyroid peroxidase antibody Thyroid peroxidase antibody Lab Routine Chronic fatigue Family history of thyroid disease Expected: 07/01/2024 (Approximate), Expires: 07/01/2025 [facility] Healthcare Comment on above: Expected: 07/01/2024 (Approximate), Expires: 07/01/2025 Start: 07-01-2024 End: 07-01-2024 Patient encounter procedure 07/01/2024 10:30 AM EDT Office Visit [facility] [address] [address] [place] [id number] Eunice Craig MD [address] [place] [address] Essential hypertension (CMS/HCC); Microalbuminuria; Morbid obesity due to excess calories (CMS/HCC) [facility] Comment on above: Essential hypertensi on (CMS/HCC); Microalbuminuria; Morbid obesity due to excess calories ([facility]/HCC) Start: 05-31-2024 Influenza vaccination Influenza Vacc ine (#1) [facility] Start: 06-08-2020 Pneumococcal Vaccine : 65+ Years (2 of 2 - PCV) Pneumococcal Vaccine: 65+ Years (2 of 2 - PCV) [facility] Start: 1955 Screening for malign ant neoplasm of colon [facility] Immunizations Immunization Date Immunization Notes Care Provider Fa cility 06-23-2024 Pneumococcal Conjuga te PCV 20 Eunice Craig MD Work Phone: [facility] 07-31-2023 SARS-COV-2 (COVID-19 ) vaccine, mRNA, spike protein, LNP, PF, 50 mcg/0.5 mL Eunice Craig MD Work Phone: [facility] 09-11-2022 Seasonal, quadrivale nt, recombinant, injectable influenza vaccine, preservative free Eunice Craig MD Work Phone: [facility] 09-11-2022 influenza virus vacc ine, unspecified formulation Eunice Craig MD Work Phone: [facility] 08-16-2022 SARS-CoV-2, Unspecified Cadence Craig MD Work Phone: [facility] 01-15-2021 zoster vaccine recombinant E jarek Craig MD Work Phone: [facility] 07-31-2020 influenza, injectabl e, quadrivalent, preservative free Eunice Craig MD Work Phone: [facility] 06-08-2019 pneumococcal polysaccharide vaccine, 23 valent Eunice Craig MD Work Phone: [facility] 06-08-2019 Seasonal, quadrivale nt, recombinant, injectable influenza vaccine, preservative free Eunice Craig MD Work Phone: [facility] 06-08-2019 zoster vaccine recombinant Eamon Craig MD Work Phone: [facility] 08-06-2015 influenza, injectabl e, quadrivalent, preservative free Eunice Craig MD Work Phone: [facility] Healthcare Payers Date Payer Category Payer Medicare [id number] 2022 Private Health Insurance [id number] 2022 Medicare [id number] 2022 Private Health Insurance [id number] 1955 Unknown [id number] 2.16.84 [id number] 1955 Unknown [id number] 2.16.8 [id number] 1955 Unknown [id number] 2.16.84 0.1.981213.3.579.2.1286 1955 Unknown [id number] 2.16.84 0.1.654371.3.579.2.1259 1955 Unknown [id number] 2.16.84 0.1.888495.3.579.2.1259 1955 Unknown [id number] 2.16.84 0.1.991682.3.579.2.1259 1955 Unknown [id number] 2.16.84 0.1.102392.3.579.2.1259 1955 Unknown [id number] 2.16.84 0.1.800555.3.579.2.1259 1955 Unknown [id number] 2.16.84 0.1.216168.3.579.2.1259 1955 Unknown [id number] 2.16.84 0.1.740585.3.579.2.1259 1955 Unknown [id number] 2.16.84 0.1.984380.3.579.2.1259 1955 Unknown [id number] 2.16.84 0.1.576228.3.579.2.1259 1955 Unknown [id number] 2.16.84 0.1.267761.3.579.2.9 1955 Unknown [id number] 2.16.84 0.1.540012.3.579.2.1259 1955 Unknown [id number] 2.16.84 0.1.555114.3.579.2.1259 1955 Unknown [id number] 2.16.840 .1.160775.3.579.2.1259 Private Health Insurance [id number] Unknown [id number] Social History Date Type Detail Facility Start: 05-22-2023 Tobacco smoking stat [facility] Never smoked tobacco [facility] Start: 05-22-2023 Tobacco use and exposure Smoke less tobacco non-user [facility] Start: 04-27-2024 End: 08-10-2024 Alcoholic beverage intake Current drinker of alcohol (finding) [facility] Start: 07-10-2023 End: 02-24-2024 History of Social function [facility] Start: 07-10-2023 End: 02-24-2024 Humiliation, Afraid, Rape, and Kick questionnaire [HARK] [facility] Within the last year , have you been afraid of your partner or ex-partner? No [facility] Do you belong to any clubs or organizations such as temple groups, unions, fraternal or athletic groups, or [...] per day of coffee [facility] Start: 1955 Sex assigned at Female [facility] Start: 04-16-2023 Gender identity Identifies as female gender (finding) [facility] Start: 04-16-2023 Sexual orientation Heterosexual (fin ding) [facility] NEGATED: Highlighted rowStart: NINF History of tobacco use Passive smoker [facility] History of Present illness Narrative 07-27-2024 [...] Denies nausea or vomiting. Last colonoscopy was 2019 SUBJECTIVE: MEDICATIONS: ALLERGIES Current Outpatient Medications Medication [...] Left 07/2018 SECTION, LOW TRANSVERSE 1981 CHOLECYSTECTOMY 1996 COLONOSCOPY 2007 OTHER SURGICAL HISTORY 2016 Toe [...] SECTION, LOW TRANSVERSE 1981 CHOLECYSTECTOMY 1997 COLONOSCOPY 2008 OTHER SURGICAL HISTORY 2017 Toe nails removed [...] file prior to visit. 1. Essential hypertension (CMS/HCC) Chronic problem, stable, to goal. In prescribing [...] 3. Morbid obesity due to excess calories ([facility]) 11/20/2023 01/07/2024 02/25/2024 07/01/2024 Vitals Height (in) 5' 2 5' 2 5' 2 5' 2 Weight (lb) 206 201.5 203.5 198 - Cortisol; Future - Cortisol 4. Chronic fatigue Chronic problem, unstable, complex in nature with moderate decision making. I discussed with the patient or their financial service representative, their fatigue issues. We discussed how [...] section and content) DATE CREATED AUTHOR 11/21/2021 [facility] dical Specialist DATE CREATED AUTHOR AUTHOR'S ORGANIZ ATION 02/09/2022 [facility] DATE CREATED AUTHOR AUTHOR'S ORGANIZ ATION 11/03/2023 [facility] DATE CREATED AUTHOR AUTHOR'S ORGANIZ ATION 08/11/2024 [facility] dical Specialists EPIC Care Teams (unrecognized sec tion and content) Band Booker Relationship Specialty Start Date End Date Eunice Craig MD [address] [place] [address] (Fax) PCP - General Family Medicine 02/05/23 Eunice Craig MD [address] [facility] [place] [address] (Fax) PCP - ACO Reach 06/29/23 Band Booker Relationship Specialty Start Date End Date uEnice Craig MD [address] [facility] [place] [address] (Fax) PCP - General Family Medicine 02/05/23 Eunice Craig MD [address] [place] [address] (Fax) PCP - ACO Reach 06/29/23 Band Booker Relationship Specialty Start Date End Date Eunice Craig MD [address] [place] [address] (Fax) PCP - General Family Medicine 02/05/23 Eunice Craig MD [address] [place] [address] (Fax) PCP - ACO Reach 06/29/23 Band Booker Relationship Specialty Start Date End Date Eunice Craig MD [address] [place] [address] (Fax) PCP - General Family Medicine 02/05/23 Eunice Craig MD [address] [place] [address] (Fax) PCP - ACO Reach 06/29/23 Band Booker Relationship Specialty Start Date End Date Eunice Craig MD [address] [address] PCP - General Family Medicine 02/05/23 Eunice Craig MD [address] [address] PCP - ACO Reach 06/29/23 Reason for [...] MDM 60 MINUTES Eunice Craig MD [address] [address] Phone: tel: fax: Lv Li, [address] [address] Phone: tel: fax: Referral ID Status Reason Start Date Expiration Date V isits Requested Visits Authorized [id number] Closed Specialty Services Required 07/20/2024 01/16/2025 1 [...] BE BASED ON THE PRIMARY CLINICAL RECORDS. [facility] provides no warranty or guarantee of the accuracy or completeness of information in this document.
[2024-08-18 06:40] VITALS: BP 179/88; PULSE 100; TEMP 36.3; O2SAT 98; BMI 36.7
[2024-08-18] MEDS: 0.9 % SODIUM CHLORIDE 500 ML 50 ML IV (07:00)
--- NOTE | 2024-08-18 07:31 | W.PM.PROCNOT ---
Date of procedure: 08/18/24 Pre-op diagnosis: screening c-scope Post-op diagnosis: same as pre-op Procedure: Previous colonoscopy: 2019 procedure: screening colonoscopy The patient was given IV conscious sedation.? The patient's SPO2 remained above 90% throughout the procedure. The colonoscope was inserted per rectum and advanced under direct vision to the cecum without difficulty.? The prep was good.? Findings: Terminal ileum os: normal Cecum/Ascending colon: normal Transverse colon: normal Descending/Sigmoid colon: normal Rectum/Anus: examined in normal and retroflexed positions and was normal aside for mild internal hemorrhoids Withdrawal Time was (minutes): 8 The colon was decompressed and the scope was removed.? The patient tolerated the procedure well. Recommendations/Plan: 1.? Lifestyle and dietary modifications as discussed 2.? F/U in 10 years for repeat c-scope 3.? Discussed with the family Anesthesia: MAC Surgeon: Reji Li Estimated blood loss (mL): 0 Pathology: none sent Condition: stable Disposition: PACU
[2024-08-18 07:48] VITALS: BP 113/57; PULSE 81; TEMP 36.1; O2SAT 97
[2024-08-18 08:03] VITALS: BP 136/75; PULSE 74; O2SAT 99
[2024-08-18 08:18] VITALS: BP 138/75; PULSE 64; O2SAT 100
== END 2024-08-18 08:18 | disposition home or self-care (01) ==
PROVIDERS: PCP Family Medicine; Visit Provider Surgery
PROC: (CPT G0121; principal; 2024-08-18 07:30)
DX: Z12.11 Encounter for screening for malignant neoplasm of colon (principal); Z86.0100 Personal history of colon polyps, unspecified; Z90.49 Acquired absence of other specified parts of digestive tract; Z98.84 Bariatric surgery status
CPT/HCPCS: G0121; J2704

== ENCOUNTER 2025-02-17 10:45 | Outpatient (OUT) | payer MEDICARE, OTHER, SELFPAY ==
--- NOTE | 2025-02-17 10:48 | MM_ITS ---
Patient Name: YUKI VILLALOBOS MR#: [id number] : 1955 Exam Date: 02/17/2025 Ordering Doctor: DR EUNICE CRAIG . RADIOLOGY REPORT PROCEDURE: MM TOMOSYNTHESIS SCREENING BI COMPARISON: MM TOMOSYNTHESIS SCREENING BI, 02/17/2024. MG MAMM SCREEN 3D [place] CAD, 02/14/2023. MG MAMM SCREEN 3D [place] CAD, 02/05/2022. MG MAMM [place] SCRN W CAD DIG, 06/03/2012. INDICATIONS: Screening Calculator Name NCI Breast Cancer Risk Assessment Tool 5 Year Breast Cancer Risk 1.40% Lifetime Breast Cancer Risk 4.80% Personal Breast Cancer No Personal Ovarian Cancer No Treatments None Family Cancers Son with testicular cancer at age 27. LOCATION: [facility] BREAST COMPOSITION: The breasts are almost entirely fatty. FINDINGS: RIGHT BREAST: No significant suspicious finding. There is a similar focal asymmetry on right paired LEFT BREAST: No significant suspicious finding. Benign-appearing lymph nodes are noted along the left chest wall. DIAGNOSTIC CATEGORY 2--BENIGN FINDING: RECOMMENDATIONS: ROUTINE MAMMOGRAM AND CLINICAL EVALUATION IN 12 MONTHS. PLEASE NOTE: A NORMAL MAMMOGRAM DOES NOT EXCLUDE THE POSSIBILITY OF BREAST CANCER. A CLINICALLY SUSPICIOUS PALPABLE LUMP SHOULD BE BIOPSIED. Dictated by: Kody Xie MD on 02/17/2025 at 16:36 Approved by: Kody Xie MD on 02/17/2025 at 16:39
--- OUTSIDE RECORDS SUMMARY | 2025-02-17 10:48 | XMS_ITS | CCD ---
Author Organization [facility] Care Team Providers Care Coding Analyst Name Role Phone RAFA, DR DAWSON Attending Unavailable HEMEJAYESH, DR DAWSON Consulting Unavailable RAFA, DR DAWSON Primary Care Unavailable RAFA, DR DAWSON Admitting Unavailable ZIEBER, DR GERALDO Giraldo Consulting Unavailable CHARISSA BARONE Referring Unavailable EUNICE CRAIG Primary Care Unavailable CHARISSA BARONE Referring Unavailable EUNICE CRAIG Primary Care Unavailable Eunice Craig MD Primary Care Provider [phone] Eunice Craig MD Unavailable Eunice Craig MD Primary Care Provider [phone] Eunice Craig MD Unavailable Eunice Craig MD Primary Care Provider [phone] Eunice Craig MD Unavailable CHARISSA BARONE Attending Unavailable EUNICE CRAIG Attending Unavailable EUNICE CRAIG Attending Unavailable CHARISSA BARONE Attending Unavailable CHARISSA BARONE Referring Unavailable CHARISSA BARONE Attending Unavailable EUNICE CRAIG Attending Unavailable CHARISSA BARONE Attending Unavailable EUNICE CRAIG Attending Unavailable LV LI Attending Unavailable EUNICE CRAIG Referring Unavailable CHARISSA BARONE Attending Unavailable CHARISSA BARONE Referring Unavailable CHARISSA BARONE Attending Unavailable CHARISSA BARONE Attending Unavailable Miller Whittington MD Unavailable Allergies Allergy Classification Reported Allergen(s) Allergy Type Date of Onset Reaction(s) Facility (1 source) Sulfamethoxazole / Trimethoprim Drug Allergy [facility] Repository (20 sources) Sulfamethoxazole / Trimethoprim; Translations: [SULFAMETHOXAZOLE-TR IMETHOPRIM] Drug Allergy 11-01-201 8 Rash [facility] Repository (7 sources) nebivolol Drug Allergy 5 [facility] Work Phone: Medications Current Medications Medication Drug Class(es) Dates Sig (Normalized) Sig (Original) gabapentin 300 mg oral capsule (20 sources) Anti-epileptic Agent Start: 12-18-2023 End: 12-28-2024 take 1 capsule by mouth at bedtime gabapentin (Neurontin) 300 MG capsule Indications: Leg pain, bilateral Take 1 capsule (300 mg) by mouth at bedtime 90 capsule 1 07/01/2024 Active ramipril 10 mg oral capsule (20 sources) Angiotensin Converting Enzyme Inhibitor Start: 10-28-2024 End: 03-23-2025 take 2 capsules by mouth once daily ramipril (Altace) 10 MG capsule Indications: Essential hypertension (CMS/HCC) Take 2 capsules (20 mg) by mouth Daily 180 capsule 12/23/2024 03/23/2025 Active Start: 01-07-2024 End: 12-28-2024 take 1 capsule by mouth once daily ramipril (Altace) 10 MG capsule Indications: Essential hypertension (CMS/HCC) Take 1 capsule (10 mg) by mouth Daily 90 capsule 1 07/01/2024 12/28/2024 Active semaglutide (Ozempic) 4 MG/3ML solution pen-injector (20 sources) Start: 12-23-2024 End: 03-23-2025 inject 1 mg by subcutaneous injection every week semaglutide (Ozempic) 4 MG/3ML solution pen-injector Indications: Morbid obesity due to excess calories (CMS/HCC) Inject 1 mg under the skin 1 (one) time per week 12 each 12/23/2024 03/23/2025 Active End: 12-23-2024 inject 1 mg by subcutaneous injection every week semaglutide (Ozempic) 4 MG/3ML solution pen-injector Inject 1 mg under the skin 1 (one) time per week 12/23/2024 Discontinued (Reorder) inject 1 mg by subcu taneous injection every week semaglutide (Ozempic) 4 MG/3ML solution pen-injector Inject 1 mg under the skin 1 (one) time per week Active urea 400 mg/ml topical cream (20 sources) urea (Carmol) 40 % cream Apply topically 2 (two) times a day. Active valACYclovir 1000 mg oral tablet (20 sources) Herpesvirus Nucleoside Analog DNA Polymerase Inhibitor, Herpes Simplex Virus Nucleoside Analog DNA Polymerase Inhibitor, Herpes Zoster Virus Nucleoside Analog DNA Polymerase Inhibitor Start: 12-03-2023 valACYclovir (Valtrex) 1 g tablet Indications: Herpes simplex Take 2 tablets twice daily for 1 day at the onset of an outbreak as needed. 40 tablet 1 12/03/2023 Active vitamin B12 (19 sources) Vitamin B12 Cyanocobalamin ( VITAMIN B 12 PO) Take by mouth Active Completed/Discontinued Medications Medication Drug Class(es) Dates Sig (Normalized) Sig (Original) bisacodyl 5 mg delayed release oral tablet (4 sources) Stimulant Laxative Start: End: take 1 tablet by mouth once bisacodyl (Dulcolax) 5 MG EC tablet Indications: Encounter for screening for malignant neoplasm of colon Take 1 tablet (5 mg) by mouth 1 time for 1 dose Do not crush, chew, or split. Take as detailed on clinic hand out for colonoscopy prep 4 tablet 07/27/2024 07/27/2024 1 ml methylPREDNISolone acetate 40 mg/ml injection (16 sources) Corticosteroid Start: End: methylPREDNISolone acetate (DEPO-Medrol) injection 40 mg Start: 11-16-2024 End: 11-16-2024 40 mg, Intra-articular, Once PRN Procedure, Starting on Sat11/16/24 at 1929, For 1 dose Start: 10-19-2024 End: 10-19-2024 methylPREDNISolone acetate ( DEPO-Medrol) injection 40 mg Start: 10-19-2024 End: 10-19-2024 40 mg, Intra-articular, Once PRN Procedure, Starting on Sat10/19/24 at 1330, For 1 dose Start: 08-10-2024 End: 08-10-2024 methylPREDNISolone acetate ( DEPO-Medrol) injection 40 mg Start: 08-10-2024 End: 08-10-2024 40 mg, Intra-articular, Once PRN Procedure, Starting on Sat08/10/24 at 1302, For 1 dose Start: 07-27-2024 End: 07-27-2024 methylPREDNISolone acetate ( DEPO-Medrol) injection 40 mg Start: 07-27-2024 End: 07-27-2024 40 mg, Intra-articular, Once PRN Procedure, Starting on 07/27/24 at 1655, For 1 dose nebivolol 5 mg oral tablet (7 sources) Start: 10-28-2024 End: 12-23-2024 take 1 tablet by mouth once daily nebivolol (Bystolic) 5 MG tablet Indications: Primary hypertension (CMS/HCC) Take 1 tablet (5 mg) by mouth Daily 30 tablet 10/28/2024 12/23/2024 Discontinued (Side effects) polyethylene glycol 3350 30164 mg powder for oral solution (4 sources) Osmotic Laxative Start: 07-27-2024 End: 07-27-2024 take 17 g by mouth once polyethylene glycol, PEG, 3350 (Glycolax) 17 GM/SCOOP powder Indications: Colonoscopy Take 238 g by mouth 1 (one) time for 1 dose Take as detailed from clinic hand out for colonoscopy prep 238 g 07/27/2024 07/27/2024 Problems Active Problems Problem Classification Problem Date Documented Da te Episodic/Chronic Anxiety disorders (20 sources) Mixed anxiety and depressive disorder; Translations: [Other specified anxiety disorders] Onset: 05-22-2023 05-22-2023 Chronic Asthma (20 sources) Uncomplicated mild persistent asthma; Translations: [Mild persistent asthma, uncomplicated] Onset: 05-22-2023 05-22-2023 Chronic Essential hypertension (20 sources) Essential hypertension; Translations: [Essential (primary) hypertension] Onset: 05-22-2023 05-22-2023 Chronic Malaise and fatigue (2 sources) Fatigue; Translations: [Chronic fatigue, unspecified] 07-01-2024 Chronic Mood disorders (20 sources) Mild depression; Translations: [Mild depressive disorder] Onset: 05-22-2023 05-22-2023 Chronic Nutritional deficiencies (20 sources) Vitamin D deficiency; Translations: [Vitamin D deficiency, unspecified] Onset: 05-22-2023 05-22-2023 Chronic Osteoarthritis (20 sources) Unilateral primary osteoarthritis, right knee; Translations: [Osteoarthritis of left hip joint] Onset: 05-22-2023 05-22-2023 Chronic Other acquired deformities (20 sources) Scoliosis deformity of spine; Translations: [Scoliosis, unspecified] Onset: 05-22-2023 05-22-2023 Chronic Other bone disease and musculoskeletal deformities (2 sources) Osteopenia; Translations: [Other specified disorders of bone density and structure, multiple sites] 02-16-2025 Episodic Other connective tissue disease (3 sources) Pain in bilateral legs; Translations: [Pain in right leg] 07-01-2024 Episodic Other non-traumatic joint disorders (4 sources) Pain in left knee; Translations: [Pain in joint, lower leg] 08-10-2024 Episodic Other non-traumatic joint disorders (4 sources) Pain in right knee; Translations: [Pain in joint, lower leg] 07-24-2024 Episodic Other nutritional; endocrine; and metabolic disorders (20 sources) Body mass index 30+ - obesity; Translations: [Body mass index (BMI) 39.0-39.9, adult] Onset: 05-22-2023 05-22-2023 Chronic Other nutritional; endocrine; and metabolic disorders (20 sources) Morbid obesity; Translations: [Morbid (severe) obesity due to excess calories] Onset: 05-22-2023 05-22-2023 Chronic Other screening for suspected conditions (not mental disorders or infectious disease) (14 sources) Encounter for screening mammogram for malignant neoplasm of breast; Translations: [Patient encounter status] Onset: 02-05-2022 Episodic Other upper respiratory disease (20 sources) Allergic rhinitis; Translations: [Allergic rhinitis, unspecified] Onset: 05-22-2023 05-22-2023 Chronic Residual codes; unclassified (1 source) Family history of malignant neoplasm of testis; Translations: [FAM HX MALIGNANT NEOPLASM TESTIS] Onset: 02-07-2022 Episodic Residual codes; unclassified (2 sources) FH: Thyroid disorder; Translations: [Family history of other endocrine, nutritional and metabolic diseases] 07-01-2024 Episodic Residual codes; unclassified (2 sources) Active advance directive (copy within chart) ; Translations: [Other specified health status] 02-10-2025 Episodic Screening and history of mental health and substance abuse codes (2 sources) Patient encounter status; Translations: [Encounter for screening examination for other mental health and behavioral disorders] 02-10-2025 Episodic Sprains and strains (8 sources) Strain of knee; Translations: [Strain of unspecified muscle(s) and tendon(s) at lower leg level, left leg, initial encounter] 08-10-2024 Episodic Unclassified (2 sources) Left knee pain, unspecified chronicity 11-16-2024 Past or Other Problems Problem Classification Problem Date Documented Da te Episodic/Chronic Acquired foot deformities (20 sources) Talipes cavus; Translations: [Congenital pes cavus, unspecified foot] Onset: 05-22-2023 05-22-2023 Episodic Genitourinary symptoms and ill-defined conditions (20 sources) Microalbuminuria; Translations: [Proteinuria, unspecified] Onset: 05-22-2023 05-22-2023 Episodic Heart valve disorders (20 sources) Heart murmur; Translations: [Cardiac murmur, unspecified] Onset: 05-22-2023 05-22-2023 Episodic Other acquired deformities (20 sources) Acquired unequal leg length; Translations: [Unequal limb length (acquired), unspecified site] Onset: 05-22-2023 05-22-2023 Episodic Other aftercare (20 sources) Polypharmacy ; Translations: [Other lobsterman (current) drug therapy] Onset: 05-22-2023 Resolved: 02-25-2024 02-25-2024 Episodic Other and unspecified benign neoplasm (20 sources) Tubular adenoma of colon; Translations: [Benign neoplasm of colon, unspecified] Onset: 08-12-2019 05-22-2023 Episodic Viral infection (20 sources) Herpes simplex; Translations: [Herpesviral infection, unspecified] Onset: 05-22-2023 05-22-2023 Episodic Results Test Name Value Interpretation Reference Range Facility No Panel Informationon 11-16 Charissa Barone NP 11/16/2024 7:33 PM L Inj/Asp: L knee on 11/16/2024 7:29 PM Indications: pain Details: 21 G needle, anterolateral approach Medications: 40 mg methylPREDNISolone acetate 40 MG/ML Outcome: tolerated well, no immediate complications Site was cleaned with isopropyl alcohol Procedure, treatment alternatives, risks and benefits explained, specific risks discussed. Consent was given by the patient. [facility] No Panel Informationon 10-19 Charissa Barone NP 10/19/2024 1:31 PM L Inj/Asp: R knee on 10/19/2024 1:30 PM Indications: pain Details: 21 G needle, anterolateral approach Medications: 40 mg methylPREDNISolone acetate 40 MG/ML Outcome: tolerated well, no immediate complications Site cleaned with isopropyl alcohol Procedure, treatment alternatives, risks and benefits explained, specific risks discussed. Consent was given by the patient. [facility] Knee - right 1 or 2 Views on 08-11-2024 Imaging Result: 07/27/2024: AP weight-bearing bilateral knees and lateral of the right knee demonstrate valgus alignment of the right knee with narrowing of the lateral compartment and subchondral sclerosis. On the lateral view there is narrowing of the patellofemoral joint and osteophyte on the superior pole of patella. No fractures are identified. Impression: Osteoarthritis right knee Charissa Barone [employer] GRAD[employer] [facility] No Panel Informationon 08-10 Charissa Barone NP 08/10/2024 1:04 PM L Inj/Asp: L knee on 08/10/2024 1:02 PM Indications: pain Details: anterolateral approach Medications: 40 mg methylPREDNISolone acetate 40 MG/ML Site was cleaned with isopropyl alcohol Consent was given by the patient. [facility] No Panel Informationon 07-27 Charissa Barone NP 08/11/2024 9:11 AM L Inj/Asp: R knee on 07/27/2024 4:55 PM Indications: pain Details: 21 G needle, anterolateral approach Medications: 40 mg methylPREDNISolone acetate 40 MG/ML Outcome: tolerated well, no immediate complications Site cleaned with isopropyl alcohol Procedure, treatment alternatives, risks and benefits explained, specific risks discussed. Consent was given by the patient. [facility] K[facility] - right 1 or 2 Views on 07-27-2024 Radiology Study observation (narrative) [facility] Adzerk MG MAMM SCREEN 3D ARIADNE CADon 02-05-2022 MG MAMM SCREEN 3D ARIADNE CAD Patient: MILLICENT MCCLENDON Exam Date: 02/05/2022 : 1955 Gender:F Ordering : DR EUNICE CRAIG . Admission #: [id number] Family : Order #: [id number] CLICK HERE TO VIEW EXAM RADIOLOGY REPORT [...] testicular cancer at age 29. LOCATION: [facility] BREAST COMPOSITION: Almost entirely fatty. FINDINGS: DIAGNOSTIC [...] M.D. on 02/05/2022 at 13:41 Normal [facility] XR Chest 2 Views*on 11-20-19 22 XR [...] by Alpesh Ross on 11/20/2021 1310 Normal [facility] Specialist Vital Signs Date Time Vital Sign Value Performing Clinician Saltyi darleen 02-16-2025 11:37-0400 Body height 157.5 cm Eunice Craig MD Work Phone: [facility] 02-16-2025 11:37-0400 Body mass index (BMI) [Ratio] 37.31 kg/m2 Eunice Craig MD Work Phone: [facility] 02-16-2025 11:37-0400 Body weight 92.53 kg Eunice Craig MD Work Phone: [facility] 02-16-2025 11:37-0400 Diastolic blood pressure 76 mm[Hg] Eunice Craig MD Work Phone: [facility] 02-16-2025 11:37-0400 Heart rate 73 /min Eunice Craig MD Work Phone: [facility] 02-16-2025 11:37-0400 SaO2% (BldA) [Mass fraction] 97 % Eunice Craig MD Work Phone: [facility] 02-16-2025 11:37-0400 Systolic blood pressure 126 mm[Hg] Eunice Craig MD Work Phone: [facility] 12-23-2024 10:37-0400 Body height 157.5 cm Eunice Craig MD Work Phone: [facility] 12-23-2024 10:37-0400 Body mass index (BMI) [Ratio] 37.13 kg/m2 Eunice Craig MD Work Phone: [facility] 12-23-2024 10:37-0400 Body weight 92.08 kg Eunice Craig MD Work Phone: [facility] 12-23-2024 10:37-0400 Diastolic blood pressure 86 mm[Hg] Eunice Craig MD Work Phone: [facility] 12-23-2024 10:37-0400 Heart rate 102 /min Eunice Craig MD Work Phone: [facility] 12-23-2024 10:37-0400 SaO2% (BldA) [Mass fraction] 97 % Eunice Craig MD Work Phone: [facility] 12-23-2024 10:37-0400 Systolic blood pressure 130 mm[Hg] Eunice Craig MD Work Phone: [facility] 07-27-2024 09:58-0400 Body height 157.5 cm Lv Guillermo DO Work Phone: [facility] 07-27-2024 09:58-0400 Body mass index (BMI) [Ratio] 37.64 kg/m2 Lvjohn Li DO Work Phone: [facility] 07-27-2024 09:58-0400 Body weight 93.35 kg Lv Li DO Work Phone: [facility] 07-27-2024 09:58-0400 Diastolic blood pressure 88 mm[Hg] Lv Li DO Work Phone: [facility] 07-27-2024 09:58-0400 Systolic blood pressure 140 mm[Hg] Lv Li DO Work Phone: [facility] 07-01-2024 10:03-0400 Body height 157.5 cm Eunice Craig MD Work Phone: [facility] 07-01-2024 10:03-0400 Body mass index (BMI) [Ratio] 36.21 kg/m2 Eunice Craig MD Work Phone: [facility] 07-01-2024 10:03-0400 Body weight 89.81 kg Eunice Craig MD Work Phone: [facility] 07-01-2024 10:03-0400 Diastolic blood pressure 78 mm[Hg] Eunice Craig MD Work Phone: [facility] 07-01-2024 10:03-0400 Heart rate 91 /min Eunice Craig MD Work Phone: [facility] 07-01-2024 10:03-0400 SaO2% (BldA) [Mass fraction] 97 % Eunice Craig MD Work Phone: [facility] 07-01-2024 10:03-0400 Systolic blood pressure 130 mm[Hg] Eunice Craig MD Work Phone: [facility] Healthcare Encounters Encounter Date Encounter Type Care Provider Facility Start: 02-16-2025 End: 02-16-2025 Bamboo flowsheet Eunice Craig MD Work Phone: [facility] Start: 02-16-2025 End: 02-16-2025 Bamboo flowsheet Eunice Craig MD Work Phone: [facility] Start: 02-16-2025 End: 02-16-2025 Patient encounter procedure Eunice Craig MD Work Phone: [facility] Comment on above: Encounter for Medica re annual wellness exam (Primary Dx); Advance directive in chart; Encounter for screening for other disorder; Screening for alcohol problem; Morbid obesity due to excess calories (CMS/HCC); BMI 37.0-37.9, adult; Mild persistent asthma without complication (CMS/HCC); Essential hypertension (CMS/HCC); Mild depressive disorder (CMS/HCC); Screening mammogram for breast cancer; Osteopenia of multiple sites Start: 12-26-2024 End: 12-28-2024 Refill Eunice Craig MD Work Phone: [facility] Comment on above: Essential hypertensi on (CMS/HCC); Leg pain, bilateral Start: 12-23-2024 End: 12-23-2024 Bamboo flowsheet Eunice Craig MD Work Phone: [facility] Start: 12-23-2024 End: 12-23-2024 Bamboo flowsheet Eunice Craig MD Work Phone: [facility] Start: 12-23-2024 End: 12-23-2024 ambulatory EUNICE CRAIG Not Available Start: 12-23-2024 End: 12-23-2024 Office outpatient visit 25 minutes Eunice Craig MD Work Phone: [facility] Comment on above: Essential hypertensi on (CMS/HCC) (Primary Dx); Microalbuminuria; Morbid obesity due to excess calories (CMS/HCC); BMI 37.0-37.9, adult; Screening for diabetes mellitus; Screening for lipid disorders Start: 12-09-2024 End: 12-24-2024 Telephone encounter Eunice Craig MD Work Phone: [facility] Comment on above: Care Coordination Start: 11-16-2024 End: 11-16-2024 Bamboo flowsheet Charissa Barone NP Work Phone: [facility] Start: 11-16-2024 End: 11-16-2024 Bamboo flowsheet Charissa Barone NP Work Phone: [facility] Start: 11-16-2024 End: 11-16-2024 Office outpatient visit 25 minutes Charissa Barone DEVELOPMENT ASSOCIATE Work Phone: [facility] Comment on above: Strain of left knee, initial encounter (Primary Dx); Left knee pain, unspecified chronicity Start: 11-16-2024 End: 11-16-2024 ambulatory CHARISSA BARONE Not Available Start: 10-19-2024 End: 10-19-2024 Bamboo flowsheet Charissa Barone DEVELOPMENT ASSOCIATE Work Phone: [facility] Start: 10-19-2024 End: 10-19-2024 Bamboo flowsheet Charissa Barone DEVELOPMENT ASSOCIATE Work Phone: [facility] Start: 10-19-2024 End: 10-19-2024 Office outpatient visit 25 minutes Charissa Barone NP Work Phone: [facility] Comment on above: Primary osteoarthrit is of right knee (Primary Dx); Right knee pain, unspecified chronicity Start: 10-19-2024 End: 10-19-2024 ambulatory CHARISSA BARONE Not Available Start: 08-10-2024 End: 08-10-2024 Bamboo flowsheet Charissa Barone DEVELOPMENT ASSOCIATE Work Phone: [facility] Start: 08-10-2024 End: 08-10-2024 Bamboo flowsheet Charissa Barone DEVELOPMENT ASSOCIATE Work Phone: [facility] Start: 08-10-2024 End: 08-10-2024 Office outpatient visit 25 minutes Charissa Barone DEVELOPMENT ASSOCIATE Work Phone: [facility] Comment on above: Strain of left knee, initial encounter (Primary Dx); Left knee pain, unspecified chronicity Start: 08-10-2024 End: 08-10-2024 ambulatory CHARISSA BARONE Not Available Start: 07-27-2024 End: 07-27-2024 Office outpatient visit 25 minutes Charissa Barone DEVELOPMENT ASSOCIATE Work Phone: [facility] Comment on above: Primary osteoarthrit is of right knee (Primary Dx); Right knee pain, unspecified chronicity Start: 07-27-2024 End: 07-27-2024 ambulatory CHARISSA BARONE Not Available Start: 07-27-2024 End: 07-27-2024 Bamboo flowsheet Lv Li DO Work Phone: [facility] Start: 07-27-2024 End: 07-27-2024 Bamboo flowsheet Lv Li DO Work Phone: [facility] Start: 07-27-2024 End: 07-27-2024 Patient encounter procedure Lv Li DO Work Phone: [facility] Comment on above: Encounter for screen [...] 01-07-2024 ambulatory EUNICE CRAIG Not Available Start: 10-01-2023 End: 10-31-2023 ambulatory CHARISSA BARONE [facility] Start: 08-27-2023 End: 09-30-2023 [facility] CHARISSA BARONE [facility] Start: 02-05-2022 End: 02-06-[address] EUNICE CRAIG Facility:[facility]1 Procedures Date Procedure Procedure Detail Performing Clinician Start: 11-16-2024 Arthrocentesis aspir &/inj major jt/bursa w/o us Charissa Barone DEVELOPMENT ASSOCIATE Work Phone: Start: 10-19-2024 Arthrocentesis aspir &/inj major jt/bursa w/o us Charissa Barone DEVELOPMENT ASSOCIATE Work Phone: Start: 08-18-2024 Colonoscopy Charissa rosales DEVELOPMENT ASSOCIATE Work Phone: Start: 08-10-2024 Arthrocentesis aspir &/inj major jt/bursa w/o us Charissa Barone DEVELOPMENT ASSOCIATE Work Phone: Start: 07-27-2024 Arthrocentesis aspir &/inj major jt/bursa w/o us Cahrissa Barone DEVELOPMENT ASSOCIATE Work Phone: Start: 07-27-2024 Radiologic examinati on knee 1/2 views Charissa Barone DEVELOPMENT ASSOCIATE Work Phone: Start: 02-18-2024 Mammography Eunice barreto MD Work Phone: Start: 08-12-2019 Colonoscopy Eunice barreto MD Work Phone: Plan of Treatment Date Care Activity Detail Author Start: 08-18-2034 Screening for malign ant neoplasm of colon [facility] Start: 08-12-2029 Screening for malign ant neoplasm of colon [facility] Start: 02-16-2026 Medicare Annual Well ness (AWV) Medicare Annual Wellness (AWV) [facility] Start: 06-17-2025 End: 06-17-2025 Patient encounter procedure 06/17/2025 10:30 AM EDT Office Visit [facility] [address] [place] [address] Eunice Craig MD [address] [place] [address] (Fax) [facility] Start: 05-31-2025 Influenza vaccination Influenz a Vaccine (Season Ended) [facility] Start: 05-25-2025 End: 12-23-2025 Comprehensive metabolic 2000 panel - Serum or Plasma Comprehensive metabolic panel Lab Routine Essential hypertension ([facility]/HCC) Screening for diabetes mellitus Expected: 05/25/2025, Expires: 12/23/2025 [facility] Work Phone: Comment on above: Expected: 05/25/2025 , Expires: 12/23/2025 Start: 05-25-2025 End: 12-23-2025 Lipid 1996 panel - Serum or Plasma Lipid panel Lab Routine Screening for lipid disorders Expected: 05/25/2025, Expires: 12/23/2025 [facility] Comment on above: Expected: 05/25/2025 , Expires: 12/23/2025 Start: 03-29-2025 Influenza vaccination Influenza Vacc ine (#1) [facility] Comment on above: Postponed from 05/31 (Patient Refused) Start: 02-24-2025 Medicare Annual Well ness (AWV) Medicare Annual Wellness (AWV) [facility] [facility] Start: 02-17-2025 Screening for malign ant neoplasm of breast Mammogram [facility] Start: 02-16-2025 End: 02-16-2026 DXA Skeletal system Views for bone density DEXA bone density Imaging Routine Osteopenia of multiple sites Expected: 02/16/2025 (Approximate), Expires: 02/16/2026 [facility] Comment on above: Expected: 02/16/2025 (Approximate), Expires: 02/16/2026 Start: 02-16-2025 End: 04-18-2026 MG Breast - bilateral Screening Bilateral screening mammogram Imaging Routine Screening mammogram for breast cancer Expected: 02/16/2025 (Approximate), Expires: 04/18/2026 [facility] Work Phone: Comment on above: Expected: 02/16/2025 (Approximate), Expires: 04/18/2026 Start: 02-16-2025 End: 02-16-2025 Patient encounter procedure 02/16/2025 11:30 AM EDT Office Visit [facility] [address] [place] [address] Eunice Craig MD [address] [facility] [address] [place] [address] Encounter for Medicare annual wellness exam; Advance directive in chart; Encounter for screening for other disorder; Screening for alcohol problem; Morbid obesity due to excess calories (CMS/HCC); BMI 37.0-37.9, adult [facility] Comment on above: [facility]; Advance directive in chart; Encounter for screening for other disorder; Screening for alcohol problem; Morbid obesity due to excess calories (CMS/HCC); BMI 37.0-37.9, adult Start: 12-30-2024 End: 07-01-2025 T3, reverse T3, reverse Lab Routine Chronic fatigue Family history of thyroid disease Expected: 12/30/2024 (Approximate), Expires: 07/01/2025 [facility] Comment on above: Expected: 12/30/2024 (Approximate), Expires: 07/01/2025 Start: 12-30-2024 End: 07-01-2025 Thyrotropin [Units/volume] in Serum or Plasma TSH Lab Routine Chronic fatigue Family history of thyroid disease Expected: 12/30/2024 (Approximate), Expires: 07/01/2025 [facility] Comment on above: Expected: 12/30/2024 (Approximate), Expires: 07/01/2025 Start: 12-30-2024 End: 07-01-2025 Thyroxine (T4) free [Mass/volume] in Serum or Plasma T4, free Lab Routine Chronic fatigue Family history of thyroid disease Expected: 12/30/2024 (Approximate), Expires: 07/01/2025 [facility] Comment on above: Expected: 12/30/2024 [...] Expected: 12/30/2024 (Approximate), Expires: 07/01/2025 [facility] Comment on above: Expected: 12/30/2024 (Approximate), Expires: 07/01/2025 Start: 12-23-2024 End: 12-23-2024 Patient encounter procedure [facility] Start: 11-16-2024 End: 11-16-2024 Patient encounter procedure 11/16/2024 9:45 AM EST Office Visit [facility] [address] [place] [phone] Charissa Barone, DEVELOPMENT ASSOCIATE [address] [place], [place] [phone] Arrived [facility] Comment on above: Arrived Start: 10-19-2024 End: 10-19-2024 Patient encounter procedure 10/19/2024 1:15 PM EST Office Visit [facility] [address] [place] [phone] Charissa Barone, DEVELOPMENT ASSOCIATE [address] [place], [place] [phone] Arrived [facility] Comment on above: Arrived Start: 07-27-2024 End: 07-27-2024 Patient encounter procedure 07/27/2024 2:30 PM EDT Office Visit [facility] [address] [place] [address] Charissa Barone, DEVELOPMENT ASSOCIATE [address] [place] [address] [facility] Start: 07-27-2024 End: 07-27-2024 Patient encounter procedure 07/27/2024 9:45 AM EDT Office Visit [facility] [address] [place] [address] Lv Li DO [address] [place] [address] Encounter for screening for malignant neoplasm of colon [facility] Comment on above: Encounter for screen ing for malignant neoplasm of colon Start: 07-01-2024 End: 07-01-2025 CBC W Auto Differential panel - Blood CBC and differential Lab Routine Chronic fatigue Expected: 07/01/2024 (Approximate), Expires: 07/01/2025 [facility] Comment on above: Expected: 07/01/2024 (Approximate), Expires: 07/01/2025 Start: 07-01-2024 End: 07-01-2025 Cortisol Cortisol Lab Routine Morbid obesity due to excess calories (CMS/HCC) Chronic fatigue Expected: 07/01/2024 (Approximate), Expires: 07/01/2025 [facility] Comment on above: Expected: 07/01/2024 (Approximate), Expires: 07/01/2025 Start: 07-01-2024 End: 07-01-2025 Iron and Iron binding capacity panel - Serum or Plasma Iron and TIBC Lab Routine Chronic fatigue Expected: 07/01/2024 (Approximate), Expires: 07/01/2025 [facility] Comment on above: Expected: 07/01/2024 (Approximate), Expires: 07/01/2025 Start: 07-01-2024 End: 07-01-2025 Thyroglobulin Antibody Thyroglobulin Antibody Lab Routine Chronic fatigue Family history of thyroid disease Expected: 07/01/2024 (Approximate), Expires: 07/01/2025 [facility] Comment on above: Expected: 07/01/2024 (Approximate), Expires: 07/01/2025 Start: 07-01-2024 End: 07-01-2025 Thyroid peroxidase antibody Thyroid peroxidase antibody Lab Routine Chronic fatigue Family history of thyroid disease Expected: 07/01/2024 (Approximate), Expires: 07/01/2025 [facility] Comment on above: Expected: 07/01/2024 (Approximate), Expires: 07/01/2025 Start: 07-01-2024 End: 07-01-2024 Patient encounter procedure 07/01/2024 10:30 AM EDT Office Visit [facility] [address] [facility] [address] [place] [address] Eunice Craig MD [address] [place] [address] (Fax) Essential hypertension (CMS/HCC); Microalbuminuria; Morbid obesity due to excess calories (CMS/HCC) [facility] Comment on above: Essential hypertensi on (CMS/HCC); Microalbuminuria; Morbid obesity due to excess calories (CMS/HCC) Start: 05-31-2024 Influenza vaccination Influenza Vacc ine (#1) [facility] Start: 06-08-2020 Pneumococcal Vaccine : 65+ Years (2 of 2 - PCV) Pneumococcal Vaccine: 65+ Years (2 of 2 - PCV) [facility] Start: 1955 Screening for malign ant neoplasm of colon [facility] Immunizations Immunization Date Immunization Notes Care Provider Fa cility 06-23-2024 Pneumococcal Conjuga te PCV 20 Eunice Craig MD Work Phone: [facility] 07-31-2023 SARS-COV-2 (COVID-19 ) vaccine, mRNA, spike protein, LNP, PF, 50 mcg/0.5 mL Eunice Craig MD Work Phone: [facility] 09-11-2022 Seasonal, quadrivale nt, recombinant, injectable influenza vaccine, preservative free Eunice Craig MD Work Phone: [facility] 09-11-2022 influenza virus vacc ine, unspecified formulation Eunice Craig MD Work Phone: [facility] 11-17-2022 SARS-CoV-2, Unspecified Edwa rd Hemeyer MD Work Phone: [facility] 01-15-2021 zoster vaccine recombinant Eamon Craig MD Work Phone: [facility] 07-31-2020 influenza, injectabl e, quadrivalent, preservative free Eunice Craig MD Work Phone: [facility] 06-08-2019 pneumococcal polysaccharide vaccine, 23 valent Eunice Craig MD Work Phone: [facility] 06-08-2019 Seasonal, quadrivale nt, recombinant, injectable influenza vaccine, preservative free Eunice Craig MD Work Phone: [facility] 06-08-2019 zoster vaccine recombinant E jarek Craig MD Work Phone: [facility] 08-06-2015 influenza, injectabl e, quadrivalent, preservative free Eunice Craig MD Work Phone: [facility] Payers Date Payer Category Payer Medicare [id number] 2022 Private Health Insurance [id number] 2022 Medicare [id number] 2022 Private Health Insurance [id number] 1957 Unknown [id number] 2.16.84 [id number] 1957 Unknown [id number] 2.16.8 [id number] 1957 Unknown [id number] 2.16.84 0.1.611642.3.579.2.1286 1957 Unknown [id number] 2.16.84 0.1.590202.3.579.2.1259 1957 Unknown [id number] 2.16.84 0.1.463208.3.579.2.1259 1957 Unknown [id number] 2.16.84 0.1.052350.3.579.2.1258 1957 Unknown [id number] 2.16.84 0.1.853628.3.579.2.9 1957 Unknown [id number] 2.16.84 0.1.032953.3.579.2.1258 1957 Unknown [id number] 2.16.84 0.1.110236.3.579.2.1258 1957 Unknown [id number] 2.16.84 0.1.707879.3.579.2.1258 1957 Unknown [id number] 2.16.84 0.1.515644.3.579.2.1258 1957 Unknown [id number] 2.16.84 0.1.259201.3.579.2.1258 1957 Unknown [id number] 2.16.84 0.1.117951.3.579.2.1258 1957 Unknown [id number] 2.16.84 0.1.211926.3.579.2.1258 1957 Unknown [id number] 2.16.84 0.1.169988.3.579.2.9 1957 Unknown [id number] 2.16.84 0.1.453896.3.579.2.1258 1957 Unknown [id number] 2.16.84 0.1.105612.3.579.2.1259 Private Health Insurance [id number] Unknown [id number] Social History Date Type Detail Facility Start: 05-22-[address] [facility] Never smoked tobacco [facility] Start: 05-22-2023 Tobacco use and exposure Smoke less tobacco non-user [facility] Start: 04-27-2024 End: 02-16-2025 Alcoholic beverage intake Current drinker of alcohol (finding) [facility] Start: 07-10-2023 End: 12-16-2024 History of Social function [facility] Start: 07-10-2023 End: 12-16-2024 Humiliation, Afraid, Rape, and Kick questionnaire [HARK] [facility] Within the last year , have you been afraid of your partner or ex-partner? No [facility] Do you belong to any clubs or organizations such as baptism groups, unions, fraternal or athletic groups, or [...] Sexual orientation Heterosexual (fin ding) [facility] How often to you hav e a drink containing alcohol? 2-3 time sa week [facility] NEGATED: Highlighted rowStart: NINF History of tobacco use Passive smoker [facility] Clinical Notes 07-01-2024 to 02-16-2025 Eunice Craig MD - 02/16/2025 11:30 AM EDTTelephone Encounter - Eunice Craig MD - 12/24/2024 4:23 PM EDTTelephone Encounter - Eunice Craig MD - 12/24/2024 4:23 PM EDT Note Date & Type Note Facility 02-16-2025 History of Presen t illness Narrative Images from the original note were not included. Millicent Mcclendon is a 69 y.o. female presents with chief complaint of Annual Exam HPI: History of Present Illness I have reviewed and reconciled the history and medication list with the patient today. CURRENT PCP/CARE TEAM: Patient Care Team: Eunice Craig MD as PCP - General (Family Medicine) Eunice Craig MD as PCP - [facility] Over the past 2 weeks, how often have you been bothered by any of the following problems? Little interest or pleasure in doing things: Not at all Feeling down, depressed, or hopeless: Not at all Patient Health Questionnaire-2 Score: 0 Nelsy Fall Risk History of Falling, Immediate or Within 3 Months: No Secondary Diagnosis: No Ambulatory Aid: Walks without aid/bedrest/nurse assist Intravenous Therapy/Heparin Lock: No Gait/Transferring: Normal/bedrest/immobile Mental Status: Oriented to own ability Nelsy Fall Risk Score: 0 Health Risk Assessment Form Do you need help eating, bathing, using the toilet, dressing, or getting around your home?: No Can you prepare your own meals?: Yes Can you do your own housework without help?: Yes Can you shop for groceries or clothes without help?: Yes Do you exercise for about 20 minutes 3 or more days a week?: Yes How confident are you that you can control and manage most of your health problems?: Very confident Can you mange your money, credit cards and accounts, pay bills and taxes?: Yes Vision Screening: Yes, patient was advised to have yearly eye exam Hearing Screening: Not done Cognitive Screening Self Assessment: No concerns rasied by family members, friends, or caretakers Three Word Registration: Captain, Garden, Picture Clock Drawing: Normal Clock - 2 Three Word Recall: All 3 words correct - 3 Total Score (0-5 Points): 5 Pain Assessment Pain Score: 1 HISTORIES: PAST MEDICAL HISTORY: Past Medical History: Diagnosis Date Acute left-sided low back pain with left-sided sciatica Allergic Arthritis May 2023 Asthma Delayed emergence from general anesthesia H/O cold sores Hypertension (CMS/HCC) Left lumbar pain Microalbuminuria SURGICAL HISTORY: Past Surgical History: Procedure Laterality Date CATARACT EXTRACTION Right 08/05/2018 CATARACT EXTRACTION Left 07/2018 SECTION, LOW TRANSVERSE 1981 CHOLECYSTECTOMY 1996 COLONOSCOPY 2007 OTHER SURGICAL HISTORY 2017 Toe nails removed by Dr Kelley STOMACH SURGERY 2009 stomach stappled SOCIAL HISTORY: Social History Tobacco Use Smoking status: Never Passive exposure: Never Smokeless tobacco: Never Vaping Use Vaping status: Never Used Substance Use Topics Alcohol use: Yes Alcohol/week: 3.0 - 4.0 standard drinks of alcohol Types: 3 - 4 Standard drinks or equivalent per week Comment: Caffeine intake : 3 cups per day of coffee Drug use: Never Depression: Not at risk (02/11/2025) PHQ-2 PHQ-2 Score: 0 FAMILY HISTORY: Family History Problem Relation Name Age of Onset Alzheimer's disease Mother Cancer Father Juvencio Velasquez No Known Problems Brother Down syndrome Son MEDICATIONS: Current Outpatient Medications Medication Instructions Cyanocobalamin (VITAMIN B 12 PO) Take by mouth gabapentin (NEURONTIN) 300 mg, Oral, Nightly ramipril (ALTACE) 20 mg, Oral, Daily semaglutide (OZEMPIC) 1 mg, Subcutaneous, Weekly urea (Carmol) 40 % cream 2 times daily valACYclovir (Valtrex) 1 g tablet Take 2 tablets twice daily for 1 day at the onset of an outbreak as needed. ALLERGIES: Allergies Allergen Reactions Nebivolol headache Sulfamethoxazole-Trimethoprim Rash PHYSICAL EXAM: Visit Vitals BP 126/76 Pulse 73 Ht 5' 2 Wt 204 lb SpO2 97% BMI 37.31 kg/m OB Status Postmenopausal Smoking Status Never BSA 2.01 m BP Readings from Last 3 Encounters: 02/16/25 126/76 12/23/24 130/86 07/27/24 140/88 Wt Readings from Last 3 Encounters: 02/16/25 204 lb 12/23/24 203 lb 07/27/24 205 lb 12.8 oz Physical Exam The patient is pleasant and in no acute distress The patient has good eye contact and clear speech Results ASSESSMENT AND PLAN: Assessment/Plan 1. Encounter for Medicare annual wellness exam (Primary) The patient is here for their Annual Medicare Wellness visit. Demographics were updated. Self-assessment was completed and reviewed. Past medical, family, and social history were updated. The medication list updated and reviewed by the doctor. A list of other current medical providers is established and updated. Time was spent discussing health maintenance issues, ordering testing as appropriate, and a schedule was reviewed regarding recommended screening. We discussed safety issues and fall risk. Depression screening was completed and addressed as appropriate. Fall screening was completed and addressed. Cognitive function was assessed by direct observation, cognitive screening as indicated, and assessment of ability to perform ADL's. The BMI and discussed. Major risk factors for chronic disease including family history were discussed. An after visit summary is made available to the patient 2. Advance directive in chart No changes to advanced directives 3. Encounter for screening for other disorder Clinically insignificant depression screening 4. Screening for alcohol problem Negative alcohol screening 5. Morbid obesity due to excess calories (CMS/HCC) Did briefly review lifestyle changes. Due to her knee pain she is having difficulty walking. 6. BMI 37.0-37.9, adult Defines the morbid obesity with comorbid conditions 7. Mild persistent asthma without complication (CMS/HCC) Chronic problem, stable, monitor longitudinally. 8. Essential hypertension (CMS/HCC) Chronic problem, stable, monitor longitudinally. 9. Mild depressive disorder (CMS/HCC) Chronic problem, stable, monitor longitudinally. 10. Screening mammogram for breast cancer - Bilateral screening mammogram; Future - Bilateral screening mammogram 11. Osteopenia of multiple sites - DEXA bone density; Future documented in this encounter [facility] 12-24-2024 Telephone encount er Note Prescription sent [facility] 12-24-2024 Miscellaneous Notes Formattin g of this note might be different from the original. Prescription sent Yin called back and stated she hadn't heard anything but the ozempic EH sent was crazy expensive. She would like it compounded at [facility] Yin called, her insurance is not allowing the Ozempic and she is requesting Dr. Craig go ahead and send a prescription over to [facility] for the brand they handle there. documented in this encounter [facility] 12-24-2024 Telephone encount er Note Yin called back and stated she hadn't heard anything but the ozempic EH sent was crazy expensive. She would like it compounded at [facility] 12-23-2024 Telephone encount er Note Yin called, her insurance is not allowing the Ozempic and she is requesting Dr. Craig go ahead and send a prescription over to [facility] for the brand they handle there. [facility] 12-23-2024 History of Presen t illness Narrative Images from the original note were not included. Patient ID: Millicent Mcclendon is a 68 y.o. female who presents for: Hypertension Patient is here for follow-up of elevated blood pressure. She is not exercising and is adherent to a low-salt diet. Blood pressure is well controlled at home. Cardiac symptoms: none. Patient denies chest pain, dyspnea, irregular heart [...] chest pain, palpitations and leg swelling. Neurological: Negative for light-headedness and headaches. Objective The patient is pleasant and in [...] is clear. Appropriate affect. Visit Vitals BP 130/86 Pulse 102 Ht 5' 2 Wt 203 lb SpO2 97% BMI 37.13 kg/m OB Status Postmenopausal Smoking Status Never BSA 2.01 m Allergies Allergen Reactions Sulfamethoxazole-Trimethoprim Rash Current Outpatient Medications on File Prior to Visit Medication Sig Dispense Refill Cyanocobalamin (VITAMIN B 12 PO) Take by mouth gabapentin (Neurontin) 300 MG capsule Take 1 capsule (300 mg) by mouth at bedtime 90 capsule 1 ramipril (Altace) 10 MG capsule Take 2 capsules (20 mg) by mouth Daily 180 capsule 0 urea (Carmol) 40 % cream Apply topically 2 (two) times a day. valACYclovir (Valtrex) 1 g tablet Take 2 tablets twice daily for 1 day at the onset of an outbreak as needed. 40 tablet 1 nebivolol (Bystolic) 5 MG tablet Take 1 tablet (5 mg) by mouth Daily (Patient not taking: Reported on 12/23/2024) 30 tablet 0 semaglutide (Ozempic) 4 MG/3ML solution pen-injector Inject 1 mg under the skin 1 (one) time per week (Patient not taking: Reported on 12/23/2024) No current facility-administered medications on file prior to visit. 1. Essential hypertension (CMS/HCC) (Primary) Chronic problem, stable, to goal. In prescribing [...] - ramipril (Altace) 10 MG capsule; Take 2 capsules (20 mg) by mouth Daily Dispense: 180 capsule; Refill: 0 - Comprehensive metabolic panel; Future - Comprehensive metabolic panel 2. Microalbuminuria Chronic problem, defining an aspect [...] 3. Morbid obesity due to excess calories (CMS/HCC) Chronic problem with very slow improvement. The patient noted that her last prescription through the pharmacy Yarely very little. I discussed with her that I truly was surprised as for weight loss this is not usually covered. We did go ahead and send this prescription to the pharmacy. As an addendum and there is a phone note, her insurance denied this. She did ask for prescription and I sent prescription to the compounding pharmacy. She understands that at this time the FDA has put a me date on stopping the compounding of semaglutide. - semaglutide (Ozempic) 4 MG/3ML solution pen-injector; Inject 1 mg under the skin 1 (one) time per week Dispense: 12 each; Refill: 0 4. BMI 37.0-37.9, adult Chronic problem defining the morbid obesity 5. Screening for diabetes mellitus - Comprehensive metabolic panel; Future - Comprehensive metabolic panel 6. Screening for lipid disorders - Lipid panel; Future - Lipid panel documented in this encounter [facility] 11-16-2024 History of Presen t illness Narrative Associated Order(s): L Inj/Asp: L knee Post-Procedure Diagnose(s): Strain of left knee, initial encounter; Left knee pain, unspecified chronicity Images from the original note were not included. HISTORY OF PRESENT ILLNESS: EST PT Millicent A Hakan is an 68 y.o. @ female. (EST PT) - LT KNEE PAIN WITH 1 MONTH FLARE UP. HERE TO DISCUSS AN INJECTION XRAY AP B/L KNEES 07/27/24 EPIC CORTISONE INJECTION 08/10/24 ANTERIOR KNEE PAIN, DESCRIBES ACHING. WORSE WITH WEATHER CHANGES AND PROLONGED WALKING. TAKING TYL ARTHRITIS. USING VOLTAREN GEL AND CAPSAISIN CREAM. WEARS COMPRESSION SLEEVE. RECHECK (R) KNEE ; S/P (R) KNEE DEPO INJ 10/19/24 RT KNEE DEPO INJN 07/27/24-SHE IS UNSURE IF IT HELPED. XRAY 07/18/23, 07/27/24 IN EPIC CORTISONE INJ 05/27/23, 01/13/24, 04/27/24, 07/27/24, 10/19/24 Intermittent anterior knee pain since 02/2023 ~ 1.5 yrs ; can be aching and sharp. Worse with cold weather and prolonged walking. Taking TYL arthritis 650mg BID and Gabapentin at HS. Using voltaren gel or capsaicin cream prn. Using ice. Denies N/T, swelling. Admits popping/grinding. Denies giving out. Admits limping. [facility] - FALL 04/27/24 ALLERGIES: Allergies Allergen Reactions Sulfamethoxazole-Trimethoprim Rash HOME MEDICATIONS: Current Outpatient Medications Medication Instructions Cyanocobalamin (VITAMIN B 12 PO) Take by mouth gabapentin (NEURONTIN) 300 mg, Oral, Nightly nebivolol (BYSTOLIC) 5 mg, Oral, Daily ramipril (ALTACE) 20 mg, Oral, Daily semaglutide (OZEMPIC) 1 mg, Weekly urea (Carmol) 40 % cream 2 times daily valACYclovir (Valtrex) 1 g tablet Take 2 tablets twice daily for 1 day at the onset of an outbreak as needed. PHYSICAL EXAM: Right Knee Exam Tenderness The patient is experiencing tenderness in the medial joint line (improved). Range of Motion Extension: -5 Flexion: 120 Tests Varus: negative Valgus: negative Anabella: Anterior - negative Drawer: Anterior - negative Other Erythema: absent Sensation: normal Pulse: present Swelling: none Effusion: no effusion present Comments: +patella grind, crepitus over patella noted with flexion/extension, Left Knee Exam Tenderness The patient is experiencing tenderness in the medial joint line. Range of Motion Extension: 0 Flexion: 120 Tests Varus: negative Valgus: negative Other Erythema: absent Scars: absent Sensation: normal Pulse: present Swelling: mild Vitals: There is no height or weight on file to calculate BMI. Tobacco Use: Low Risk (08/10/2024) Patient History Smoking Tobacco Use: Never Smokeless Tobacco Use: Never Passive Exposure: Never Alcohol Use: Not At Risk (07/10/2023) AUDIT-C Frequency of Alcohol Consumption: 4 or more times a week Average Number of Drinks: 1 or 2 Frequency of Binge Drinking: Never IMAGING: L Inj/Asp: L knee on 11/16/2024 7:29 PM Indications: pain Details: 21 G needle, anterolateral approach Medications: 40 mg methylPREDNISolone acetate 40 MG/ML Outcome: tolerated well, no immediate complications Site was cleaned with isopropyl alcohol Procedure, treatment alternatives, risks and benefits explained, specific risks discussed. Consent was given by the patient. Orders Placed This Encounter Procedures L Inj/Asp This order was created via procedure documentation ASSESSMENT: ICD-10-CM 1. Left knee pain, unspecified chronicity M25.562 2. Strain of left knee, initial encounter S86.912A PLAN: I reviewed exam findings with the patient and discussed treatment options, answered questions. I discussed with the patient the option of an injection. I advised the patient of risks associated with an injection including a reaction to medication, infection, failure to improve and possible worsening. The patient demonstrated understanding. Patient requesting injection. Skin Cleansed with alcohol swab. Utilizing aseptic technique patient given 40mg Depomedrol was injected. Patient tolerated this well. Neurovasc intact s/p injection. Post injection care instructions discussed. Questions answered in laymen terms at the bedside. The diagnosis, home exercise plan and any ongoing restrictions/ recommendations reviewed. If unable to be reached in office, I recommend evaluation at nearest Emergency Room if any symptoms worsened or new symptoms develop for requiring urgent evaluation. documented in this encounter [facility] 10-19-2024 History of Presen t illness Narrative Associated Order(s): L Inj/Asp: R knee Post-Procedure Diagnose(s): Primary osteoarthritis of right knee Images from the original note were not included. HISTORY OF PRESENT ILLNESS: EST PT Millicent Mahoney Hakan is an 68 y.o. @ female. Last RT knee depo injx 07/27/24 RT knee pain. Constant pain x (02/2023). NKI. Pain has been getting worse over time. Would like to discuss an injection. Cortisone injx 05/27/23, 01/13/24, 04/27/24, 07/27/24 Xray noms 07/18/23, 07/27/24 Anterior knee pain, can be aching and sharp. Worse with cold weather and prolonged walking. Taking TYL arthritis 650mg BID and Gabapentin at HS. Using voltaren gel or capzasin cream prn. Using ice. Denies N/T, swelling. Admits popping/grinding. Denies giving out. Admits limping. Also having similar symptoms in the LT knee. ALLERGIES: Allergies Allergen Reactions Sulfamethoxazole-Trimethoprim Rash HOME MEDICATIONS: Current Outpatient Medications Medication Instructions Cyanocobalamin (VITAMIN B 12 PO) Take by mouth gabapentin (NEURONTIN) 300 mg, Oral, Nightly ramipril (ALTACE) 10 mg, Oral, Daily semaglutide (OZEMPIC) 1 mg, Weekly urea (Carmol) 40 % cream 2 times daily valACYclovir (Valtrex) 1 g tablet Take 2 tablets twice daily for 1 day at the onset of an outbreak as needed. PHYSICAL EXAM: Right Knee Exam Tenderness The patient is experiencing tenderness in the medial joint line. Range of Motion Extension: -10 (was able to get to 0 with PROM) Flexion: 110 Tests Varus: negative Valgus: negative Anabella: Anterior - negative Other Erythema: absent Sensation: normal Pulse: present Swelling: mild Effusion: no effusion present Vitals: There is no height or weight on file to calculate BMI. Tobacco Use: Low Risk (08/10/2024) Patient History Smoking Tobacco Use: Never Smokeless Tobacco Use: Never Passive Exposure: Never Alcohol Use: Not At Risk (07/10/2023) AUDIT-C Frequency of Alcohol Consumption: 4 or more times a week Average Number of Drinks: 1 or 2 Frequency of Binge Drinking: Never IMAGING: L Inj/Asp: R knee on 10/19/2024 1:30 PM Indications: pain Details: 21 G needle, anterolateral approach Medications: 40 mg methylPREDNISolone acetate 40 MG/ML Outcome: tolerated well, no immediate complications Site cleaned with isopropyl alcohol Procedure, treatment alternatives, risks and benefits explained, specific risks discussed. Consent was given by the patient. Orders Placed This Encounter Procedures L Inj/Asp This order was created via procedure documentation ASSESSMENT: ICD-10-CM 1. Primary osteoarthritis of right knee M17.11 2. Right knee pain, unspecified chronicity M25.561 PLAN: I reviewed exam findings with the patient and discussed treatment options, answered questions. Patient had difficulty with full extension but I was able to get patient to 0 degrees with PROM. I educated patient to continue to work on this at home with HEP. I discussed with the patient the option of an injection for her right knee. I advised the patient of risks associated with an injection including a reaction to medication, infection, failure to improve and possible worsening. The patient demonstrated understanding. Patient requesting injection. Skin Cleansed with alcohol swab. Utilizing aseptic technique patient given 40mg Depomedrol was injected. Patient tolerated this well. Neurovasc intact s/p injection. Post injection care instructions discussed. Questions answered in laymen terms at the bedside. The diagnosis, home exercise plan and any ongoing restrictions/ recommendations reviewed. If unable to be reached in office, I recommend evaluation at nearest Emergency Room if any symptoms worsened or new symptoms develop for requiring urgent evaluation. 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 08-10-2024 History of Hiram marti illness Narrative Associated Order(s): L Inj/Asp: L knee Post-Procedure Diagnose(s): Strain of left knee, initial encounter Images from the original note were not included. Chief Complaint Patient presents with Right Knee - Follow-up HISTORY OF PRESENT ILLNESS: Millicent Mcclendon is an 68 y.o. @ female. 2 weeks s/p depo inj 07/27 RT knee pain. Constant pain x (02/2023). NKI. Dr Craig performed an arthrocentesis 05/27/23, no significant fluid from aspiration, then injected 80mg of depo. Recent onset x had a fall about a week after she got the injection (04/27). 70% improvement. States it aches today due to weather. Taking TYL arthritis 650mg BID and Gabapentin at HS. Using volatern or capzasin cream. Using ice. Denies N/T, swelling. Admits popping/grinding. Denies giving out. Notes she has had upper thigh pain since she had covid December 2022. Unsure if this could affect her knee Prior tx: PCP, gabapentin, XR [facility] 05/22/23, arthrocentesis with depo injection 05/27/23, XR [facility] 07/18/23, celebrex, TYL ES, motrin, depo injection 01/13/24, depo injection 04/27/24, XR [facility] 07/27/24, depo injection 07/27/24 ALLERGIES: Allergies Allergen Reactions Sulfamethoxazole-Trimethoprim Rash HOME MEDICATIONS: Current Outpatient Medications Medication Instructions Cyanocobalamin (VITAMIN B 12 PO) Take by mouth gabapentin (NEURONTIN) 300 mg, Oral, Nightly ramipril (ALTACE) 10 mg, Oral, Daily semaglutide (OZEMPIC) 1 mg, Weekly urea (Carmol) 40 % cream 2 times daily valACYclovir (Valtrex) 1 g tablet Take 2 tablets twice daily for 1 day at the onset of an outbreak as needed. PHYSICAL EXAM: Right Knee Exam Tenderness The patient is experiencing tenderness in the medial joint line (improved). Range of Motion Extension: -5 Flexion: 120 Tests Varus: negative Valgus: negative Anabella: Anterior - negative Drawer: Anterior - negative Other Erythema: absent Sensation: normal Pulse: present Swelling: none Effusion: no effusion present Comments: +patella grind, crepitus over patella noted with flexion/extension, Left Knee Exam Tenderness The patient is experiencing tenderness in the medial joint line. Range of Motion Extension: 0 Flexion: 120 Tests Varus: negative Valgus: negative Other Erythema: absent Scars: absent Sensation: normal Pulse: present Swelling: mild Vitals: There is no height or weight on file to calculate BMI. IMAGING: ASSESSMENT: Strain of left knee, initial encounter Left knee pain, unspecified chronicity L Inj/Asp: L knee on 08/10/2024 1:02 PM Indications: pain Details: anterolateral approach Medications: 40 mg methylPREDNISolone acetate 40 MG/ML Site was cleaned with isopropyl alcohol Consent was given by the patient. PLAN: I reviewed exam findings with the patient and discussed treatment options, answered questions. I discussed with the patient the option of an injection as she had good relief with right knee injection. I advised the patient of risks associated with an injection including a reaction to medication, infection, failure to improve and possible worsening. The patient demonstrated understanding. Patient requesting injection. Skin Cleansed with alcohol swab. Utilizing aseptic technique patient given 40mg Depomedrol was injected. Patient tolerated this well. Neurovasc intact s/p injection. Post injection care instructions discussed. She will follow up as needed. Educated patient we can repeat injection every 3-4 months as needed. Questions answered in laymen terms at the bedside. The diagnosis, home exercise plan and any ongoing restrictions/ recommendations reviewed. If unable to be reached in office, I recommend evaluation at nearest Emergency Room if any symptoms worsened or new symptoms develop for requiring urgent evaluation. 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 07-27-2024 History of Presen t illness Narrative Associated Order(s): L Inj/Asp: R knee Post-Procedure Diagnose(s): Primary osteoarthritis of right knee Images from the original note were not included. Chief Complaint Patient presents with Right Knee - Pain HISTORY OF PRESENT ILLNESS: Millicent Mcclendon is an 68 y.o. @ female. Last depo inj 04/27 RT knee pain. Constant pain x (02/2023). NKI. Dr Craig performed an arthrocentesis 05/27/23, no significant fluid from aspiration, then injected 80mg of depo. Recent onset x had a fall about a week after she got the injection. Limping. Having B/L knee pain. Pain anterior knee. Denies radiation. Taking TYL arthritis 650mg and Gabapentin at HS. Using voltaren and ice. Denies N/T, swelling. Admits popping/grinding. Denies giving out. Sometimes wakes at HS. Notes she has had upper thigh pain since she had covid December 2022. Unsure if this could affect her knee Prior tx: PCP, gabapentin, XR [facility] 05/22/23, arthrocentesis with depo injection 05/27/23, XR [facility] 07/18/23, celebrex, TYL ES, motrin, depo injection 01/13/24, depo injection 04/27/24, XR [facility] 07/27/24 ALLERGIES: Allergies Allergen Reactions Sulfamethoxazole-Trimethoprim Rash HOME MEDICATIONS: Current Outpatient Medications Medication Instructions Cyanocobalamin (VITAMIN B 12 PO) Take by mouth gabapentin (NEURONTIN) 300 mg, Oral, Nightly ramipril (ALTACE) 10 mg, Oral, Daily semaglutide (OZEMPIC) 1 mg, Weekly urea (Carmol) 40 % cream 2 times daily valACYclovir (Valtrex) 1 g tablet Take 2 tablets twice daily for 1 day at the onset of an outbreak as needed. PHYSICAL EXAM: Right Knee Exam Tenderness The patient is experiencing tenderness in the medial joint line. Range of Motion Extension: -5 Flexion: 120 Tests Varus: negative Valgus: negative Anabella: Anterior - negative Drawer: Anterior - negative Other Erythema: absent Sensation: normal Pulse: present Swelling: none Effusion: no effusion present Comments: +patella grind, crepitus over patella noted with flexion/extension, Vitals: There is no height or weight on file to calculate BMI. IMAGING: XR knee 1 or 2 views right Imaging Result: 07/27/2024: AP weight-bearing bilateral knees and lateral of the right knee demonstrate valgus alignment of the right knee with narrowing of the lateral compartment and subchondral sclerosis. On the lateral view there is narrowing of the patellofemoral joint and osteophyte on the superior pole of patella. No fractures are identified. Impression: Osteoarthritis right knee Charissa Barone [employer] GRADER ASSESSMENT: Primary osteoarthritis of right knee Right knee pain, unspecified chronicity L Inj/Asp: R knee on 07/27/2024 4:55 PM Indications: pain Details: 21 G needle, anterolateral approach Medications: 40 mg methylPREDNISolone acetate 40 MG/ML Outcome: tolerated well, no immediate complications Site cleaned with isopropyl alcohol Procedure, treatment alternatives, risks and benefits explained, specific risks discussed. Consent was given by the patient. PLAN: I reviewed xray and exam findings with the patient and discussed treatment options, answered questions. I discussed with the patient the option of an injection. I advised the patient of risks associated with an injection including a reaction to medication, infection, failure to improve and possible worsening. The patient demonstrated understanding. Patient requesting injection. Skin Cleansed with alcohol swab. Utilizing aseptic technique patient given 40mg Depomedrol was injected. Patient tolerated this well. Neurovasc intact s/p injection. Post injection care instructions discussed. She will follow up as needed. Educated patient we can repeat injection every 3-4 months as needed. Questions answered in laymen terms at the bedside. The diagnosis, home exercise plan and any ongoing restrictions/ recommendations reviewed. If unable to be reached in office, I recommend evaluation at nearest Emergency Room if any symptoms worsened or new symptoms develop for requiring urgent evaluation. 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 07-27-2024 History of Presen t illness Narrative [...] - Ambulatory referral to General Surgery - preeti Mortoncolax) 5 MG EC tablet; Take 1 tablet [...] Alexandro Li DO documented in this encounter [facility] 07-01-2024 History of Presen t illness Narrative [...] file prior to visit. 1. Essential hypertension (CMS/[facility]) Chronic problem, stable, to goal. In prescribing [...] 3. Morbid obesity due to excess calories ([facility]) 11/20/2023 01/07/2024 02/25/2024 07/01/2024 Vitals Height (in) 5' 2 5' 2 5' 2 5' 2 Weight (lb) 206 201.5 203.5 198 - Cortisol; Future - Cortisol 4. Chronic fatigue Chronic problem, unstable, complex in nature with moderate decision making. I discussed with the patient or their apprenticeship training representative, their fatigue issues. We discussed how [...] in this encounter [facility] note Diagnosis Essential hypertension (CMS/HCC)- Primary Unspecified essential hypertension Microalbuminuria Proteinuria Morbid obesity due to excess calories (CMS/HCC) Chronic fatigue Other malaise and fatigue Family history of thyroid disease Family history of other endocrine and metabolic diseases Leg pain, bilateral Pain in soft tissues of limb documented in this encounter [facility]* Diagnosis Encounter for screening for malignant neoplasm of colon- Primary Right knee pain, unspecified chronicity documented [facility] this [facility]* Diagnosis Strain of left knee, initial encounter- Primary Left knee pain, unspecified chronicity documented [facility] this [facility]* Diagnosis Primary osteoarthritis of right knee- Primary Right knee pain, unspecified chronicity documented [facility]* Diagnosis Primary osteoarthritis of right knee- Primary Right knee pain, unspecified chronicity documented in this [facility]* Diagnosis Strain of left knee, initial encounter- Primary Left knee pain, unspecified chronicity documented in this [facility]* Diagnosis Essential hypertension (CMS/HCC)- Primary Unspecified essential hypertension Microalbuminuria Proteinuria Morbid obesity due to excess calories (CMS/HCC) BMI 37.0-37.9, adult Screening for diabetes mellitus Screening for lipid disorders documented in this [facility]* Diagnosis Essential hypertension (CMS/HCC) Unspecified essential hypertension Leg pain, bilateral Pain in soft tissues of limb documented in this [facility]* Diagnosis Encounter for Medicare annual wellness exam- Primary Advance directive in chart Encounter for screening for other disorder Screening for alcohol problem Screening for alcoholism Morbid obesity due to excess calories (CMS/HCC) BMI 37.0-37.9, adult Mild persistent asthma without complication (CMS/HCC) Essential hypertension (CMS/HCC) Unspecified essential hypertension Mild depressive disorder (CMS/HCC) Screening mammogram for breast cancer Osteopenia of multiple sites documented in this encounter [facility] Summary Purpose Family History No Family History Records FoundNo Family History Records FoundNo Family History Records FoundNo Family History Records Found Advance Directives Documents on File Type Date Recorded Patient [employer] Off[employer]arer Expl anation Advance Directives and Living Will 12/07/2024 2:00 PM 2024-12-07 Living Wi ll Additional Source Comments INFORMATION SOURCE (unrecogn ized section and content) DATE CREATED AUTHOR 11/21/2021 [facility] Me dical Specialist DATE CREATED AUTHOR AUTHOR'S ORGANIZ ATION 02/09/2022 [facility] DATE CREATED AUTHOR AUTHOR'S ORGANIZ ATION 11/03/2023 [facility] DATE CREATED AUTHOR AUTHOR'S ORGANIZ ATION 12/24/2024 [facility] dical Specialists EPIC Care Teams (unrecognized sec tion and content) Coding Analyst Relationship Specialty Start Date End Date Eunice Craig MD [address] [place] [address] (Fax) PCP - General Family Medicine 02/05/23 Eunice Craig MD [address] [place] [address] (Fax) PCP - ACO Reach 06/29/23 Coding Analyst Relationship Specialty Start Date End Date Eunice Craig MD [address] [place] [address] (Fax) PCP - General Family Medicine 02/05/23 Eunice Craig MD [address] [place] [address] (Fax) PCP - ACO Reach 06/29/23 Coding Analyst Relationship Specialty Start Date End Date Eunice Craig MD [address] [place] [address] (Fax) PCP - General Family Medicine 02/05/23 Eunice Craig MD [address] [place] [address] (Fax) PCP - ACO Reach 06/29/23 Coding Analyst Relationship Specialty Start Date End Date Eunice Craig MD [address] [place] [address] (Fax) PCP - General Family Medicine 02/05/23 Eunice Craig MD [address] [place] [address] (Fax) PCP - ACO Reach 06/29/23 Coding Analyst Relationship Specialty Start Date End Date Eunice Craig MD [address] [place] [address] (Fax) PCP - General Family Medicine 02/05/23 Eunice Craig MD [address] [place] [address] (Fax) PCP - ACO Reach 06/29/23 Coding Analyst Relationship Specialty Start Date End Date Eunice Craig MD [address] [place] [address] (Fax) PCP - General Family Medicine 02/05/23 Eunice Craig MD [address] [place] [address] (Fax) PCP - ACO Reach 06/29/23 Coding Analyst Relationship Specialty Start Date End Date Eunice Craig MD [address] [place] [address] (Fax) PCP - General Family Medicine 02/05/23 Eunice Craig MD [address] [place] [address] (Fax) PCP - ACO Reach 06/29/23 Coding Analyst Relationship Specialty Start Date End Date Eunice Craig MD [address] [place] [address] (Fax) PCP - General Family Medicine 02/05/23 Eunice Craig MD [address] [place] [address] (Fax) PCP - ACO Reach 06/29/23 Coding Analyst Relationship Specialty Start Date End Date Eunice Craig MD [address] [place] [address] (Fax) PCP - General Family Medicine 02/05/23 Eunice Craig MD [address] [place] [address] (Fax) PCP - ACO Reach 06/29/23 Coding Analyst Relationship Specialty Start Date End Date Eunice Craig MD [address] [place] [address] (Fax) PCP - General Family Medicine 02/05/23 Eunice Craig MD [address] [place] [address] (Fax) PCP - ACO Reach 06/29/23 Coding Analyst Relationship Specialty Start Date End Date Eunice Craig MD [address] [place] [address] (Fax) PCP - General Family Medicine 02/05/23 Eunice Craig MD [address] [place] [address] (Fax) PCP - ACO Reach 06/29/23 Coding Analyst Relationship Specialty Start Date End Date Eunice Craig MD [address] [place] [address] (Fax) PCP - General Family Medicine 02/05/23 Eunice Craig MD [address] [place] [address] (Fax) PCP - ACO Reach 06/29/23 Coding Analyst Relationship Specialty Start Date End Date Eunice Craig MD [address] [place] [address] (Fax) PCP - General Family Medicine 02/05/23 Eunice Craig MD [address] [place] [address] (Fax) PCP - ACO Reach 06/29/23 Coding Analyst Relationship Specialty Start Date End Date Eunice Craig MD [address] [place] [address] (Fax) PCP - General Family Medicine 02/05/23 Eunice Craig MD [address] [place] [address] (Fax) PCP - ACO Reach 06/29/23 Coding Analyst Relationship Specialty Start Date End Date Eunice Craig MD [address] [place] [address] (Fax) PCP - General Family Medicine 02/05/23 Eunice Craig MD [address] [place] [address] (Fax) PCP - ACO Reach 06/29/23 Coding Analyst Relationship Specialty Start Date End Date Eunice Craig MD [address] [place] [address] (Fax) PCP - General Family Medicine 02/05/23 Eunice Craig MD [address] [facility] [address] [place] [address] (Fax) PCP - ACO Reach 06/29/23 Coding Analyst Relationship Specialty Start Date End Date Eunice Craig MD [address] [facility] [address] [place] [address] (Fax) PCP - General Family Medicine 02/05/23 Eunice Craig MD [address] [address] (Fax) PCP - ACO Reach 06/29/23 [place] [address] [place] [address] Referring Physician Radiation Oncology 02/16/25 Reason for Visit (unrecogniz ed section and [...] today. Specialty Diagnoses / Procedures Referred By Dayana t Referred To Contact General Surgery Diagnoses Encounter for screening for malignant neoplasm of colon Procedures RI OFFICE/OUTPATIENT [facility] 60 MINUTES Eunice Craig MD [address] [facility] [address] [place] [address] Phone: tel: fax: Lv Li DO [address] [facility] [address] [place] [address] Phone: tel: fax: Referral ID Status Reason Start Date Expiration Date V isits Requested Visits Authorized [id number] Closed Specialty Services Required 07/20/2024 01/16/2025 1 1 Reason Comments Follow-up Reason Comments Pain Reason Onset Date Comments Care Coordination 12/09/2024 Reason Comments Hypertension Reason Comments Med Refill Reason Comments Annual Exam FOR RECORDS PERTAINING TO PATIENTS WHO ARE [...] BE BASED ON THE PRIMARY CLINICAL RECORDS. [facility] [employer] [facility]. provides no warranty or guarantee of the accuracy or completeness of information in this document.
== END 2025-02-17 10:46 | disposition home or self-care (01) ==
LOC: MAMMO 10:45
PROVIDERS: PCP Family Medicine; Visit Provider Family Medicine
DX: Z12.31 Encounter for screening mammogram for malignant neoplasm of breast (principal); Z80.43 Family history of malignant neoplasm of testis
CPT/HCPCS: 77063; 77067

== ENCOUNTER 2025-04-06 06:51 | Outpatient (OUT) | payer MEDICARE, OTHER, SELFPAY ==
--- OUTSIDE RECORDS SUMMARY | 2025-03-31 14:34 | XMS_ITS ---
Author Name Auto Generated Organization OHIP Care Team Providers Care Adolescent Medicine Specialist Name Role Phone CHARISSA BARONE Attending Unavailable EUNICE CRAIG Attending Unavailable CHARISSA BARONE Attending Unavailable EUNICE CRAIG Attending Unavailable EUNICE CRAIG Referring Unavailable EUNICE CRAIG Attending Unavailable EUNICE CRAIG Attending Unavailable LV KEY Attending Unavailable EUNICE CRAIG Referring Unavailable CHARISSA BARONE Attending Unavailable CHARISSA BARONE Referring Unavailable CHARISSA BARONE Attending Unavailable CHARISSA BARONE Attending Unavailable RIP JAIN Attending Unavailable RIP JAIN Referring Unavailable EUNICE CRAIG Primary Care Unavailable PROBLEMS DATE TYPE CONDITION / CODE ATTENDING STATUS [facility] 02/18/2025 Unknown Pain in right kn ee / M25.561(ICD-10) RIP JAIN Active [facility] 02/18/2025 Unknown Pain in left kne e / M25.562(ICD-10) RIP JAIN Active [facility] PROCEDURES No Procedure Records Found RESULTS CBC WITH DIFF Collected: 11:31 AM Status: F Source: [facility] TYPE CODE TESTS RESULT OUT OF RANGE REFERENCE UNITS LAB WBC(LOINC) WBC Count 7.5 3.5-11.3 k/uL LAB RBC(LOINC) RBC Count 4.49 3.95-5.11 m/uL LAB HGB(LOINC) Hemoglobin 15.0 11.9-15.1 g/dL LAB HCT(LOINC) Hematocrit 43.5 36.3-47.1 % LAB MCV(LOINC) MCV 96.9 82.6-102.9 fL LAB MCH(LOINC) MCH 33.4 25.2-33.5 pg LAB MCHC(LOINC) MCHC 34.5 28.4-34.8 g/dL LAB RDW(LOINC) RDW 13.5 11.8-14.4 % LAB PLT(LOINC) Platelet Count 266 138-453 k/uL LAB MPVX(LOINC) MPV 9.4 8.1-13.5 fL LAB NRBCS(LOINC) NRBC Automated 0.0 0.0 per 100 WBC LAB SEG(LOINC) Neutrophil (Seg) 47 36-65 % LAB LYM(LOINC) Lymphocyte 36 24-43 % LAB MON(LOINC) Monocyte 10 3-12 % LAB EO(LOINC) Eosinophil 6 High 1-4 % LAB BASO(LOINC) Basophil 1 0-2 % LAB IGRAN(LOINC) Immature Granulocyte 0 0 % LAB ASEG(LOINC) Abs.Neutrophil (Seg) 3.55 1.50-8.10 k/uL LAB ALYM(LOINC) Abs. Lymph 2.70 1.10-3.70 k/uL LAB AMONO(LOINC) Abs. Monocyte 0.71 0.10-1.20 k/u L LAB AEO(LOINC) Abs. Eosinophil 0.44 0.00-0.44 k/u L LAB ABASO(LOINC) Abs. Basophil 0.07 0.00-0.20 k/u L LAB AIGRAN(LOINC) Abs.Imm.Granulo cyte <0.03 0.00-0.30 k/uL Performed By: #### IVETH, CDP #### [address] [place] [address] Director Dental Services: Romel Carter MD BASIC METABOLIC PROF Collected: 025 11:31 AM Status: F Source: [facility] TYPE CODE TESTS RESULT OUT OF RANGE REFERENCE UNITS LAB NA(LOINC) NA (Sodium) 143 136-145 mmol/L LAB K(LOINC) K (Potassium) 4.4 3.7-5.3 mmol/L LAB CL(LOINC) Chloride 104 98-107 mmol/L LAB HCO(LOINC) CO2 26 20-31 mmol/L LAB GAP(LOINC) Anion Gap 13 9-16 mmol/L LAB GLU(LOINC) Glucose 99 74-99 mg/dL LAB BUN(LOINC) BUN (Urea N) 16 8-23 mg/dL LAB CRE(LOINC) Creatinine 0.6 0.6-0.9 mg/dL LAB EGFR(LOINC) eGFR >90 >60 mL/min/1. 73m2 Result Comment: These results are not intended for use in patients <18 years of age. eGFR results are calculated without a race factor using the 2020 CKD-EPI equation. Careful clinical correlation is recommended, particularly when comparing to results calculated using previous equations. The CKD-EPI equation is less accurate in patients with extremes of muscle mass, extra-renal metabolism of creatine, excessive creatine ingestion, or following therapy that affects renal tubular secretion. LAB CA(LOINC) Calcium 10.3 8.6-10.4 mg/dL Performed By: #### IVETH, CDP #### [address] [place] [address] Director Dental Services: Romel Carter MD DEXA BONE DENSITY Observed: 02/24/2025 10:32 AM Status: F Source: [facility] EPIC Examination: DEXA BONE DENSI TY Clinical History: osteopenia Technique: Bone density study was performed. T score values for the lumbar spine, right femoral neck and left femoral neck were obtained. Comparison: 07/21/2020. Findings: Value for the lumbar spine from L1-L4 is -0.6. Value for the right femoral neck is -1.0. Value for the left femoral neck is -1.4. Findings are compatible with mild osteopenia with mild increased fracture risk. No evidence of osteoporosis. Study was compared to the prior exam dated 07/21/2020 which demonstrates borderline mild osteopenia. Findings are slightly progressed compared to the prior exam. IMPRESSION: Impression: Findings compatible with mild osteopenia with mild increased fracture risk. Findings are slightly progressed compared to the prior exam. ELECTRONICALLY SIGNED BY: Miguelito Billings M.D. MRI KNEE RIGHT WO CONTRAST Observed: 11:04 AM Status: F Source: [facility] EXAMINATION: MRI OF THE RIGHT KNEE WITHOUT CONTRAST, 02/18/2025 10:32 am TECHNIQUE: Multiplanar multisequence MRI of the right knee was performed without the administration of intravenous contrast. COMPARISON: None HISTORY: ORDERING SYSTEM PROVIDED HISTORY: Pain in both knees, unspecified chronicity. TECHNOLOGIST PROVIDED HISTORY: Rule out medial meniscus tear. What is the sedation requirement? None Reason for Exam: Patient states chronic right knee pain. Clicking and popping. FINDINGS: MENISCI: Complex tear of the anterior horn and root of the lateral meniscus. A portion of the anterior root remains intact. Mild peripheral extrusion of the lateral meniscus. Degenerative signal of the posterior horn of the medial meniscus with small horizontal tear best seen on proton density image 11 of series 6 as well as a small longitudinal tear suspected at the posterior horn on image 14 of series 7. CRUCIATE LIGAMENTS: Intact anterior cruciate and posterior cruciate ligaments. EXTENSOR MECHANISM: Lateral patellar translation within a shallow trochlear groove. Hypoplasia of the medial trochlear facet. Tibial tuberosity to trochlear groove distance measures 1.3 cm, elevated. Patellar tendinosis without tear. Mild edema in Hoffa's fat pad. LATERAL COLLATERAL LIGAMENT COMPLEX: Intact IT band, lateral collateral ligament proper, biceps femoris tendon and popliteus tendon. MEDIAL COLLATERAL LIGAMENT COMPLEX: The superficial and deep components of the medial collateral ligament are intact. KNEE JOINT: Moderate joint effusion with Wiley's cyst. High-grade cartilage loss of the patellofemoral compartment. Low to intermediate grade chondromalacia in the medial compartment. Small tricompartmental osteophytes. BONE MARROW: No evidence of acute fracture or aggressive marrow replacing lesion. Nonspecific prepatellar soft tissue edema. IMPRESSION: 1. Medial and lateral meniscal tears as described. 2. Moderate to severe osteoarthritis. 3. Moderate joint effusion with Wiley's cyst. Interpreted by: Serenity Jenkins DO Signed by: Serenity Jenkins DO 02/23/25 Final result ALLERGIES No Allergies Records Found ENCOUNTERS ADMIT/DISCHARGE ACCOUNT NUMBER ADMITTING ENCOUNTER CLASS LOCATION SOURCE 03/31/2025/ 5 [id number] Ambulatory Building:[address] [facility] 02/24/2025/ 5 [id number] Ambulatory Building:[facility] 02/18/2025/ 5 [id number] Ambulatory Building:[facility] 02/16/2025/ 5 [id number] Ambulatory Building:[address] [facility] 12/23/2024/ 5 [id number] Ambulatory Building:[address] [facility] 11/16/2024/ 5 [id number] Ambulatory Building:[facility] 10/19/2024/ 5 [id number] Ambulatory Building:[facility] 08/10/2024/ 4 [id number] Ambulatory Building:[facility] 07/27/2024/ 4 [id number] Ambulatory Building:[facility] 07/27/2024/ 4 [id number] Ambulatory Building:[facility] 07/27/2024/ 4 [id number] Ambulatory Building:[facility] 07/01/2024/ 4 [id number] Ambulatory Building:[address] [facility] 04/27/2024/ 4 [id number] Ambulatory Building:[facility] PAYERS ENCOUNTER GUARANTOR PAYER SUBSCRIBER SOURCE 03/31/2025 YUKI SANCHEZ: [id number] [place] [address]Imm: (HP) Primary Insurance:MEDICARE Policy Number: [id number] Date:2240-83-75Lvp n Name:Medicare YUKI Mahoney LAURA: [id number] [place] [address] [facility] EPIC 02/24/2025 YUKI KIMB: [place] [address]Dgy: (HP) Primary Insurance:MEDICARE Policy Number: [id number] ve Date:8314-65-02Fzy n Name:Medicare YUKI A JULIOB: [id number] [place] [facility] 02/18/2025 YUKI SANCHEZ: [place], [place] [address]Syj: (HP) Primary Insurance:MEDICARE Policy Number: [id number] Date:8255-92-87[address] [place] [address]UU: YUKI SANCHEZ: [id number] [place], [place] [address]Xdj: (HP) [facility] 02/18/2025 Secondary Insurance:CIGNAPol icy Number: [id number] e Date:9513-48-88[address] [place] [address]AR: YUKI KIMB: [id number] [place], [place] [address]Woz: (HP) [facility] 02/16/2025 YUKI KIMB: [place] [address]Cso: (HP) Primary Insurance:MEDICARE Policy Number: [id number] Date:7197-48-29Jcf n Name:Medicare YUKI VILLALOBOSDOB: [id number] [place] [address] [facility] EPIC 12/23/2024 YUKI VILLALOBOSDOB: [place] [address]Ddq: (HP) Primary Insurance:MEDICARE Policy Number: [id number] Date:3881-23-45Svk n Name:Medicare YUKI VILLALOBOSDOB: [id number] [place] [address] [facility] 11/16/2024 YUKI A JULIOB: [place] [address]Ely: (HP) Primary Insurance:MEDICARE Policy Number: [id number] Date:2712-80-39Czo n Name:Medicare YUKI VILLALOBOSB: [id number] [place] [facility] 11/16/2024 Secondary Insurance:CIGNAPol icy Number: [id number] e Date:7880-77-35Jve n Name:Izabella [place]ANEG[address] [place], [place] [address]EX: YUKI A WILFREDODOB: [id number] [place] [facility] EPIC 10/19/2024 YUKI A WILFREDODOB: [place] [address]Hql: (HP) Primary Insurance:MEDICARE Policy Number: [id number] Date:3201-52-02Fhc n Name:Medicare YUKI VILLALOBOSDOB: [id number] [place] [address] [facility] EPIC 10/19/2024 Secondary Insurance:CIGNAPol icy Number: [id number] e Date:8564-03-31Qdy n Name:[address], [place] [address]FF: YUKI KIMB: [id number] [place] [address] [facility] 08/10/2024 YUKI KIMB: [place] [address]Muu: (HP) Primary Insurance:MEDICARE Policy Number: [id number] Date:3611-18-50Guh n Name:Medicare YUKI Denzel JULIOB: [id number] [place] [facility] 08/10/2024 Secondary Insurance:CIGNAPol icy Number: [id number] e Date:5475-32-70Sns n Name:[address] [address], [place] [address]KM: YUKI KIMB: [id number] [place] [address] [facility] 07/27/2024 YUKI KIMB: [place] [address]Csg: (HP) Primary Insurance:MEDICARE Policy Number: [id number] Date:2740-78-95Zmp n Name:Medicare YUKI A JULIOB: [id number] [place] [facility] 07/27/2024 Secondary Insurance:CIGNAPol icy Number: [id number] e Date:9059-99-93Jeg n Name:[address] [address], [place] [address]VM: YUKI KIMB: [id number] [place] [facility] 07/27/2024 YUKI SANCHEZ: [place] [address]Cgp: (HP) Primary Insurance:MEDICARE Policy Number: [id number] Date:1953-16-69Yij n Name:Medicare YUKI Mahoney WILFREDODOB: [id number] [place] [address] [facility] 07/27/2024 Secondary Insurance:CIGNAPol icy Number: [id number] e Date:4495-73-09Jml n Name:[address] [address], [place] [address]FY: YUKI Denzel WILFREDODOB: [id number] [place] [address] [facility] Medical [facility] 07/27/2024 YUKI Denzel JULIOB: [place] [address]Tel: (HP) Primary Insurance:MEDICARE Policy Number: [id number] Date:0988-62-15Oyb n Name:Medicare YUKI Mahoney JULIOB: [id number] [place] [address] [facility] 07/27/2024 Secondary Insurance:CIGNAPol icy Number: [id number] e Date:9761-90-77Qzn n Name:[address] [address], [place] [address]HE: YUKI Denzel WILFREDODOB: [id number] [place] [address] [facility] 07/01/2024 YUKI Denzel WILFREDODOB: [place] [address]Nwp: (HP) Primary Insurance:MEDICARE Policy Number: [id number] ve Date:6042-58-96Rqi n Name:Medicare YUKI A JULIOB: [id number] [place] [address] [facility] 07/01/2024 Secondary Insurance:CIGNAPol icy Number: [id number] e Date:9064-68-71Yzl n Name:[address] [address], [place] [address]PN: YUKI KIMB: [id number] [place] [facility] 04/27/2024 YUKI SANCHEZ: [place] [address]Xnh: () Primary Insurance:MEDICARE Policy Number: [id number] Date:8529-29-96Trs n Name:Medicare YUKI SANCHEZ: [id number] [place] [facility] 04/27/2024 Secondary Insurance:CIGNAPol icy Number: [id number] e Date:6023-33-10Ldt n Name:[address] [address], [place] [address]LE: YUKI SANCHEZ: [id number] [place] [facility]
--- NOTE | 2025-04-06 | NM_ITS ---
Patient Name: YUKI VILLALOBOS MR#: [id number] : 1955 Exam Date: 04/06/2025 Ordering Doctor: DR EUNICE CRAIG . RADIOLOGY REPORT PROCEDURE: NM MAGALI PERF SPECT REST STR COMPARISON: None. INDICATIONS: PRE-OP TESTING, LEFT ANTERIOR FASCICULAR BLOCK, HTN TECHNIQUE: Exam Description: Stress/Rest one day protocol gated SPECT Rest Imagin.4 mCi Tc-99m Cardiolite IV on 04/06/2025 Stress Imaging 31.6 mCi Tc-99m Cardiolite IV on 04/06/2025 Exercise Protocol: 0.4 mg Lexiscan given IV Heart Rate (bpm): Rest: 64 Max: 105 PMHR: 68 Blood Pressure: Rest: 134/80 Max: 134/80 Symptoms: Rest and peak stress ECG findings were pending and the EKG portion of the study was pending per attending physician [facility] . For more details please see separate cardiac stress test report. FINDINGS: QUALITY OF STUDY: Good PERFUSION DEFECT: None LOCATION: SIZE: SEVERITY: TYPE: WALL MOTION: Normal LV SIZE: 45 mL. TID / TCD: 0.9 LVEF: Calculated EF 89%. SUMMARY: Normal myocardial perfusion imaging study CONCLUSION: Normal myocardial perfusion stress test images without evidence of ischemia or infarction Normal left ventricle systolic function, ejection fraction 89% No transient ischemic dilatation, TID 0.9 EKG portion of stress test is reported separately Dictated by: Bj Osei MD on 04/07/2025 at 13:41 Approved by: Bj Osei MD on 04/07/2025 at 13:48
[2025-04-06] MEDS: REGADENOSON 0.4 MG/5 ML SYRINGE IV (09:28)
--- NOTE | 2025-04-06 09:28 | PC.NURSE ---
Nursing Note Cardiac Stress Test Reviewed: Medication, allergies and patient history reviewed. Stress Test: [x ] Patient tolerated stress test well. [ ] Patient unable to tolerate walking on treadmill. Switched to Lexiscan stress test. [x ] No chest pain noted per patient [ ] Chest pain that resolved prior to leaving stress lab. [x ] No dyspnea noted. [ ] Dyspnea that resolved prior to leaving stress lab. [x ] Patient left stress lab asymptomatic and hemodynamically stable. [ ] Patient taken to the Emergency Room due to non-resolving symptoms following stress test. [ ] Patient achieved target heart rate. [ ] Patient unable to achieve target heart rate. [ ] Aminophylline administered as reversal agent to Lexiscan (Regadenoson). [ ] Nitro administered. Nursing Comments:Pt had Lexiscan test done. Pt had no symptoms other then some heaviness initially that resolved within 2 minutes. Pt was taken to cafeteria for breakfast prior to second set of images.
--- NOTE | 2025-04-06 17:29 | PM.STRESS ---
Stress Test Stress Test Allergies Allergy/AdvReac Type Severity Reaction Status Date / Time sulfamethoxazole (From Allergy Rash Verified 08/12/24 08:30 Bactrim) trimethoprim (From Bactrim) Allergy Rash Verified 08/12/24 08:30 Requesting physician: EUNICE CRAIG Procedure: Vasodilator stress test General Information: Reason for Stress Test: [Preop] Cardiac History and Risk Factors: [] Stress Test: Requesting Physician: Procedure Date:04/06/2025 REASON FOR TEST: Preop evaluation At baseline, patient was noted to have sinus rhythm with a heart rate of 64 beats per minute and a blood pressure of 134/80 mm/Hg. EKG showed sinus rhythm with slightly low voltage amplitude with normal intervals and poor R-wave progression. Following vasodilator infusion, the heart rate increased to 105 beats per minute, with a max blood pressure noted of 134/80 mm/Hg, achieving 68% of the expected heart rate. Following infusion of the vasodilator, no ST changes suggestive of ischemia were noted, no arrhythmias were seen except for an occasional PVC. Interpretation: IMPRESSION: 1. No EKG changes suggestive of ischemia on the vasodilator stress test. 2. Perfusion study to be dictated separately by the Radiology Section
== END 2025-04-06 06:52 | disposition home or self-care (01) ==
LOC: NM 06:52
PROVIDERS: PCP Family Medicine; Visit Provider Family Medicine
DX: Z01.818 Encounter for other preprocedural examination (principal); I44.4 Left anterior fascicular block; R01.1 Cardiac murmur, unspecified; I10 Essential (primary) hypertension; R94.31 Abnormal electrocardiogram [ECG] [EKG]
CPT/HCPCS: 78452; 93017; A9500; J2785